=== PATIENT | male | born 1945 | race Caucasian/White ===

== ENCOUNTER → 2017-12-15 | Outpatient (CLI) | payer MEDICARE, OTHER ==
[~2017-12-15] VITALS: Ht 177.8 cm; Wt 81.6 kg
[~2017-12-15] MED LIST: ASPI-983 PO; CATHETER FLUSH 10 ML SYR IV PRN; LORA10TA76 PO; OXYC-202 PO; REGADENOSON 0.4 MG/5 ML SYR (LEXISCAN) IV ONE; RT-ALBUINH IH
[2017-12-15 09:34] VITALS: BP 138/75
[2017-12-15 16:58] VITALS: BP 149/70
--- NOTE | 2017-12-15 16:59 | Cardiology Stress Test Report ---
Stress Test Report Type of NM Stress Test: Test Type: LEXISCAN 0.4MG/5ML Date of Procedure/Referring: Date of Procedure: December 15, 2017 PCP Sharita Sosa MD Admitting Physician Héctor Purcell MD Indications: CAD, shortness of breath Baseline Heart Rate: 58 Baseline Blood Pressure: Blood Pressure Systolic: 149 Blood Pressure Diastolic: 70 Baseline EKG: Baseline EKG: Sinus rhythm Summary: The patient was brought to the stress lab after informed consent was taken. Lexiscan stress test was performed according to the protocol. 0.4 mg of IV Lexiscan was given. Low-grade exercise was performed. Baseline EKG showed sinus rhythm at 58 BPM. Blood pressure 149/70 mmHg. Maximum heart rate of 96 BPM and blood pressure 130/63 mmHg. Patient did not complain of chest pain. Did not have any EKG changes or arrhythmias. 10.88 mCi of Myoview were given for rest imaging and 30.4 mCi of Myoview was given for stress imaging. Transient ischemic dilatation score of 1.05. Ejection fraction of 46 percent. A small sized, intermediate intensity reversible apical, distal anterior defect is noted. SSS 7, SRS 2, SDS 5. Conclusion: Pharmacological stress test is negative. Mild LV systolic dysfunction with normal wall motion. Likely distal anterior/apical ischemia. Clinical correlation is recommended. Sharita SOSA MD December 15, 2017 4:58 pm
== END ==
LOC: CARD 07:50
PROVIDERS: ATTEND Internal Medicine Interventional Cardiology
DX: Z01.810 Encounter for preprocedural cardiovascular examination (principal); I25.10 Atherosclerotic heart disease of native coronary artery without angina pectoris; R06.02 Shortness of breath; F17.200 Nicotine dependence, unspecified, uncomplicated; N20.0 Calculus of kidney
CPT/HCPCS: 78452; 93017

== ENCOUNTER 2017-12-29 07:26 | Day surgery (SDC) | payer MEDICARE, OTHER ==
[~2017-12-29] VITALS: Ht 177.8 cm; Wt 81.6 kg
[2017-12-29] MEDS ORDERED: HEParin (CATH LAB) 2,000 ML IV ONE (07:33)
[2017-12-29] MEDS ORDERED: NS IV 1000 ML 1,000 ML ONE (07:33)
[2017-12-29] MEDS ORDERED: LIDOCAINE 1% INJ 20 ML 20 ML VIAL ONE (07:33)
[2017-12-29] MEDS ORDERED: NS IV 1000 ML 1,000 ML IV SCH ×2 (07:45→11:22)
[2017-12-29 07:58] VITALS: BP 133/96
[2017-12-29 08:11] LABS: RED BLOOD COUNT 4.72 10^6/uL (4.35-5.85); RED CELL DISTRIBUTION WIDTH 13.3 % (10.0-14.5); WHITE BLOOD COUNT 9.5 10^3/uL (4.3-11.0)
[2017-12-29] MEDS ORDERED: OXYC-202 PO (08:23)
[2017-12-29] MEDS ORDERED: RT-ALBUINH IH (08:23)
[2017-12-29] MEDS ORDERED: LORA10TA76 PO (08:23)
[2017-12-29 08:38] LABS: PROTHROMBIN TIME PATIENT 13.4 SEC (12.2-14.7)
[2017-12-29 08:39] LABS: ALANINE AMINOTRANSFERASE 17 U/L (0-55); ALBUMIN 4.2 GM/DL (3.2-4.5); ALKALINE PHOSPHATASE 82 U/L (40-136); BILIRUBIN,TOTAL 0.5 MG/DL (0.1-1.0); BUN/CREATININE RATIO 16; CALCIUM 9.5 MG/DL (8.5-10.1); CARBON DIOXIDE 23 MMOL/L (21-32); CHLORIDE 105 MMOL/L (98-107); CREATININE SERUM 1.06 MG/DL (0.60-1.30); GFR ESTIMATED > 60; GLUCOSE 111 MG/DL (70-105); POTASSIUM 4.6 MMOL/L (3.6-5.0); SODIUM 139 MMOL/L (135-145)
[2017-12-29] MEDS ORDERED: fentaNYL INJECTION 100 MCG/2 ML AMP ONE (09:43)
[2017-12-29] MEDS ORDERED: MIDAZOLAM 5 MG/5 ML (VERSED) VIAL ONE (09:43)
--- NOTE | 2017-12-29 09:56 | Cardiac Procedure Note-CS/ASA ---
Pre-Procedure Note Pre-Op Procedure Note H&P Reviewed The H&P was reviewed, patient examined and no changes noted. Date H&P Reviewed: December 29, 2017 Time H&P Reviewed: 09:56 Conscious Sedation Pre-Proced Time Reviewed: 09:56 ASA Class: 3 Airway Mallampati Classification: ([place] appropriate class) I. II. III, IV Lungs Heart ASA score ASA 1: a normal healthy patient ASA 2: a patient with a mild systemic disease (mid diabetes, controlled hypertension, obesity ASA 3: a patient with a severe systemic disease that limits activity (angina , COPD, prior Myocardial infarction) ASA 4: a patient with an incapacitating disease that is a constant threat to life (CHF, renal failure) ASA 5: a moribund patient not expected to survive 24 hrs. (ruptured aneurysm) ASA 6: a declared brain patient whose organs are being harvested. For emergent operations, add the letter E after the classification Grade 1 Sedation Plan: Analgesia, Amnesia, Plan communicated to team members, Discussed options with patient/fam, Discussed risks with patient/fam Note The patient is an appropriate candidate to undergo the planned procedure, sedation, and anesthesia. The patient immediately re-assessed prior to indication. Sharita SMITH MD December 29, 2017 9:56 am
[2017-12-29 11:05] VITALS: BP 100/67
[2017-12-29 11:15] VITALS: BP 100/62
--- NOTE | 2017-12-29 11:22 | Coronary Angiography Report ---
Coronary Angiography Report DATE OF PROCEDURE: 12/29/17 INDICATION: Shortness of breath, history of ID/CABG, preoperative cardiac assessment, abnormal nuclear stress test. PREOPERATIVE DIAGNOSIS: Shortness of breath, history of ID/CABG, preoperative cardiac assessment, abnormal nuclear stress test. POSTOPERATIVE DIAGNOSIS: Severe three-vessel [place] disease, patent grafts. HISTORY: This is a 72-year-old gentleman who was referred for preoperative cardiovascular risk assessment to undergo a urological procedure under general anesthesia. He complained of shortness of breath with exertion. He has history of ID and CABG 11 years ago and was not taking any antiplatelet therapy or statins. Nuclear stress test was abnormal. Therefore, the patient was scheduled for coronary angiography. PROCEDURES PERFORMED: 1.Coronary angiography. 2.Left heart catheterization. 3. Graft angiography. 4. CARPENTER angiography. 5. Aortic arch angiography. COMPLICATIONS: None. SPECIMENS: None. ESTIMATED BLOOD LOSS: 10 mL ANESTHESIA: Conscious sedation ANTICOAGULATION: None. CONTRAST: 200 mL. FLUOROSCOPY: 15.6 minutes. FLOUROSCOPY DOSE: 619 mgy. PROCEDURE DETAILS: The patient is a 72 male and was brought to the laboratory equipment installer after informed consent was taken. All the risks and complications were explained in detail; this included the risk of bleeding, vascular damage, stroke , ID and even . The patient was draped and prepped in the usual sterile fashion. Access was gained in the right femoral artery with a 5 [place] sheath. Right coronary angiography was done with a JR4 catheter, and graft angiography was done with a JR4 catheter, CARPENTER was engaged with the BLU catheter , left coronary angiography was performed with the JL4 catheter, left heart catheterization and aortic arch angiography was performed with a pigtail catheter. FINDINGS: 1.Left main: Diffuse disease. 2.LAD: Diffuse disease with total occlusion in the proximal segment. Mid/ distal LAD supplied with a patent CARPENTER graft. Backflow into the first diagonal artery as well. 3.Left circumflex artery: Severe diffuse disease. First OM artery is supplied by a patent saphenous vein graft. 4.RCA: Occluded in the proximal segment. Distal RCA is supplied by a saphenous vein graft. 5.Left heart catheterization: Aortic pressure 103/48 mmHg, LV pressure 101/0 mmHg. LVEDP 16 mmHg, normal LV function with no wall motion abnormalities. There was no gradient across the aortic valve. S 6. Saphenous vein graft angiography: Patent saphenous vein graft to first obtuse marginal artery. Patent saphenous vein graft to the distal RCA. 7. CARPENTER angiography: Patent CARPENTER to the proximal LAD. No significant distal disease. Backflow into the first diagonal artery. 8. Aortic arch angiography: No evidence of dissection or aneurysm. Patent segments of the proximal great vessels including the brachiocephalic artery, left carotid artery, and left subclavian artery. CONCLUSIONS: Severe three-vessel [place] CAD with patent grafts. Normal LV function with mildly elevated LVEDP suggesting diastolic dysfunction. I discussed at length with the patient and recommended that he should be on aspirin, statin and other secondary prevention measures. Okay to proceed with urological procedure under general anesthesia. Follow-up in the office in 6 weeks. Andreia Sosa MD, FACP, FACC, [facility] Interventional Cardiology Sharita SOSA MD December 29, 2017 11:22 am
[2017-12-29 11:30] VITALS: BP 117/66
[2017-12-29] MEDS ORDERED: PATIENT MAY USE OWN MEDS, ALL PO SCH (11:30)
[2017-12-29] MEDS ORDERED: ASPI-983 PO (13:42)
--- NOTE | 2017-12-29 13:43 | Discharge Inst-Post CATH ---
Discharge Inst-CATH Post Cardiac Cath D/C Inst Follow Up/Plan Dr. Sosa in 6 weeks CARDIAC CATH DISCHARGE INSTRUCTIONS *Hold Metformin for 48 hours post heart cath. ACTIVITY * Go Home directly and rest. * Limit activity of the leg (or wrist if it was used) for 7 days including aerobics, swimming, jogging, bicycling, etc. * Restrict stair-climbing for 7 days if possible, if not, climb up with your non -cath leg, then bring together on the same step. * Avoid lifting, pushing, pulling or excessive movement of the affected extremity for 7 days. * Customary sexual activity may be resumed after 2 days-use caution not to use a position that strains or causes pain to the affected extremity. * No driving for 24 hours. * NO SMOKING. * Avoid straining for bowel movements for 7 days. * Gentle walking on level ground is allowed. * Returning to work will depend on the type of procedure and the results. Your doctor will discuss this with you. CALL YOUR DOCTOR FOR ANY OF THE FOLLOWING: *If bleeding from the puncture site occurs- Apply gentle pressure to site with clean cloth and call your doctor or EMS. * If a knot or lump forms under the skin, increases in size, or causes pain. * If bruising appears to be worsening or moving further down your leg instead of disappearing. * Temperature above 101 F. CARE OF YOUR GROIN INCISION; * Bruising or purple discoloration of the skin near the puncture site is common. * You may shower only, no bathtub bathing for 5 days. Be careful to avoid slipping as your leg may feel stiff. * If a closure device was used on your femoral artery, please see the attached guide regarding care of the device and your leg. * REMOVE the dressing from your groin the next day after your procedure in the shower. CARE OF YOUR WRIST INCISION; * Bruising or purple discoloration of the skin near the puncture site is common. * You may shower. * DO NOT submerge wrist. * Remove dressing in 24 hours. Sharita SOSA MD December 29, 2017 13:43
--- NOTE | 2017-12-29 13:48 | Cardiology Discharge Summary ---
Diagnosis/Chief Complaint Date of Admission 12/29/2017 Date of Discharge 12/29/2017 Admission Diagnosis Shortness of breath, CAD, abnormal nuclear stress test Final/Discharge Diagnosis Severe [place] CAD, patent grafts Chief Complaint/HPI Chief Complaint/HPI This is a 72-year-old gentleman with history of shortness of breath. He plans to undergo urological procedure under general anesthesia. Decreased functional capacity. History of CABG/NE. Not on optimal medical therapy due to severe side effects. Nuclear stress test was done which was abnormal. Therefore coronary angiography was recommended. Discharge Summary Procedures Coronary angiography showed severe three-vessel [place] CAD. Patent saphenous vein graft to the OM, saphenous vein graft to the distal RCA, CARPENTER to the LAD. Normal LV function. Discharge Physical Examination Unremarkable. Hospital Course Unremarkable. Pending Labs Laboratory Tests 12/29/17 08:04: White Blood Count 9.5, Red Blood Count 4.72, Hemoglobin 15.0, Hematocrit 43, Mean Corpuscular Volume 90, Mean Corpuscular Hemoglobin 32, Mean Corpuscular Hemoglobin Concent 35, Red Cell Distribution Width 13.3, Platelet Count 280, Mean Platelet Volume 9.0, Prothrombin Time 13.4, INR Comment 1.0, Activated Partial Thromboplast Time 30, Sodium Level 139, Potassium Level 4.6, Chloride Level 105, Carbon Dioxide Level 23, Anion Gap 11, Blood Urea Nitrogen 17, Creatinine 1.06, Estimat Glomerular Filtration Rate > 60, BUN/Creatinine Ratio 16, Glucose Level 111, Calcium Level 9.5, Total Bilirubin 0.5, Aspartate Amino Transf (AST/SGOT) 20, Alanine Aminotransferase (ALT/SGPT) 17, Alkaline Phosphatase 82, Total Protein 8.0, Albumin 4.2 Discussion & Recommendations Discussion Discussed at length with the patient since he is not on any antiplatelet therapy. He tells me that he had severe bleeding with Plavix and aspirin. We' ll start him on low-dose aspirin. He also had side effects to statin therapy. I did recommend that he should be on some LDL lowering agent. No cardiac contraindication to his urological procedure. He is low to intermediate risk. Follow up appt.: Dr. Sosa in 4-6 weeks. Dicharge Diet: Cardiac Diet Activity as Tolerated: Yes Home Medications Reviewed patient Home Medication Reconciliation performed by pharmacy medication reconciliations solid waste landfill technician and/or nursing. Patients Allergies have been reviewed. Discharge Home Medications: Reviewed and agree with Discharge Medication list on patient's Discharge Instruction sheet Condition at discharge Stable. Instructions to patient/family Dr. Sosa in 6 weeks Sharita SOSA MD December 29, 2017 13:48
[2017-12-29 15:30] VITALS: BP 124/85
[2017-12-30] MEDS ORDERED: ASPIRIN E.C. 81 MG (ECOTRIN) TAB PO SCH (09:00)
== END 2017-12-29 15:37 | disposition home or self-care (01) ==
LOC: CATH 07:26
PROVIDERS: ATTEND Internal Medicine Interventional Cardiology
DX: I25.10 Atherosclerotic heart disease of native coronary artery without angina pectoris (principal); R06.02 Shortness of breath; R94.39 Abnormal result of other cardiovascular function study; I25.2 Old myocardial infarction; Z95.0 Presence of cardiac pacemaker; Z79.899 Other long term (current) drug therapy; F17.210 Nicotine dependence, cigarettes, uncomplicated
CPT/HCPCS: 36415; 80053; 85027; 85610; 85730; 87081; 93459

== ENCOUNTER → 2020-08-27 | Outpatient (CLI) | payer MEDICARE, MEDICAID ==
[~2020-08-27] MED LIST changes: +ASPI-1238 PO; -ASPI-983 PO; +ATOR80TA76 PO; -CATHETER FLUSH 10 ML SYR IV PRN; +FLUT1DIS28 INH; +LISI-556 PO; +METO-333 PO; +OMG1KC PO; -OXYC-202 PO; +OXYC1TAB12 PO; -REGADENOSON 0.4 MG/5 ML SYR (LEXISCAN) IV ONE; +TICA90TA PO
[2020-08-27 10:00] LABS: BASOPHILS % (AUTO) 0 % (0-10); EOSINOPHILS % (AUTO) 4 % (0-10); HEMATOCRIT 37 % (40-54); HEMOGLOBIN 12.1 G/DL (13.3-17.7); LYMPHOCYTES % (AUTO) 14 % (12-44); MEAN CORPUSCULAR HEMOGLOBIN 30 PG (25-34); MEAN CORPUSCULAR HGB CONC 33 G/DL (32-36); MEAN CORPUSCULAR VOLUME 90 FL (80-99); MEAN PLATELET VOLUME 8.5 FL (7.4-10.4); MONOCYTES % (AUTO) 9 % (0-12); NEUTROPHILS % (AUTO) 73 % (42-75); PLATELET COUNT 419 10^3/uL (130-400); WHITE BLOOD COUNT 11.2 10^3/uL (4.3-11.0)
[2020-08-27 10:01] LABS: EOSINOPHILS # (AUTO) 0.4 10^3/uL (0.0-0.3); LYMPHOCYTES # (AUTO) 1.5 X 10^3 (1.0-4.0); NEUTROPHILS # (AUTO) 8.2 X 10^3 (1.8-7.8)
[2020-08-27 10:29] LABS: POTASSIUM 4.1 MMOL/L (3.6-5.0)
[2020-08-27 10:30] LABS: ALBUMIN 3.9 GM/DL (3.2-4.5); BILIRUBIN,TOTAL 0.4 MG/DL (0.1-1.0); CALCIUM 9.3 MG/DL (8.5-10.1); CREATININE SERUM 1.35 MG/DL (0.60-1.30); TOTAL PROTEIN 7.8 GM/DL (6.4-8.2)
== END ==
LOC: LAB FS 09:33
PROVIDERS: ATTEND Family Medicine
DX: K92.2 Gastrointestinal hemorrhage, unspecified (principal)
CPT/HCPCS: 36415; 80053; 85025

== ENCOUNTER 2020-09-06 11:02 | Inpatient (IN) | payer MEDICARE, MEDICAID ==
[~2020-09-06] VITALS: Ht 177.8 cm; Wt 80.8 kg
[2020-09-06] MEDS ORDERED: ASPIRIN 81 MG CHEW (CHILDREN'S ASA) PO ONE (11:15)
--- NOTE | 2020-09-06 11:17 | ED Chest Pain ---
General Stated Complaint: SOB; CHEST PAIN History of Present Illness Date Seen by Provider: Sep 06, 2020 Time Seen by Provider: 11:10 Initial Comments 74-year-old male with past medical history significant for coronary artery disease and CABG presents with onset of chest pain beginning 1 hour prior to arrival. Radiating to both arms and feeling numbness and tingling in both arms. Somewhat short of air. Denies any recent illness, fever chills or cough. Denies abdominal pain, nausea, vomiting or diarrhea. Seen 3 weeks ago in this ER and transferred to [place] for heart cath where he received a stent by Dr. Garcia. Allergies and Home Medications Allergies Coded Allergies: warfarin (Verified Allergy, Unknown, 08/16/20) midazolam (Verified Adverse Reaction, Severe, 08/18/20) PT RECEIVED VERSED FOR HEART CATH, THEY HAD TO REVERSE MEDICATION DUE TO BEHAVIOR clopidogrel (Verified Adverse Reaction, Unknown, ringing in ears, 08/17/20) Home Medications Albuterol Sulfate 1 Puff Puff, 2 PUFF IH Q4H PRN for SHORTNESS OF BREATH, (Reported) Aspirin 81 Mg Tablet.dr, 81 MG PO DAILY Prescribed by: NIDIA ALBA on 08/18/20 1034 Atorvastatin Calcium 80 Mg Tablet, 80 MG PO HS Prescribed by: NIDIA ALBA on 08/18/20 1034 Fluticasone/Salmeterol 1 Each Blst.w.dev, 1 PUFF INH BID PRN for SHORTNESS OF BREATH, (Reported) Lisinopril 5 Mg Tablet, 5 MG PO DAILY@0900 Prescribed by: NIDIA ALBA on 08/18/20 1034 Metoprolol Tartrate 25 Mg Tablet, 25 MG PO BID Prescribed by: NIDIA ALBA on 08/18/20 1034 Means 3 Polyunsat Fatty Acids 1,000 Mg Cap, 1,000 MG PO DAILY, (Reported) Ticagrelor 90 Mg Tablet, 90 MG PO BID Prescribed by: NIDIA ALBA on 08/18/20 1034 Patient Home Medication List Home Medication List Reviewed: Yes Review of Systems Review of Systems Constitutional: No chills, No dizziness, No fever, No malaise, No weakness Respiratory: Denies Cough; Shortness of Air Cardiovascular: Chest Pain; Denies Edema, Denies Lightheadedness Gastrointestinal: Denies Abdominal Pain, Denies Diarrhea, Denies Nausea, Denies Poor Appetite, Denies Vomiting Musculoskeletal: No back pain, No joint pain, No neck pain Skin: No change in color, No lesions, No lumps, No rash Past Bnbjpxk-Hptosd-Vcdpds Hx Past Med/Social Hx: Reviewed Nursing Past Med/Soc Hx Patient Social History Alcohol Beverage of Choice: Beer Type Used: Cigarettes 2nd Hand Smoke Exposure: Yes Past Medical History Surgeries: Yes (R ARM DEAN, L WRIST, HERNIA, KIDNEY STONE REMOVED) CABG Respiratory: Yes Asthma, COPD Cardiac: Yes (HAD CABG) Coronary Artery Disease, Heart Attack, Rheumatic Fever Neurological: No Genitourinary: Yes Kidney Stones Gastrointestinal: No Musculoskeletal: Yes (R ARM) Fractures Endocrine: No HEENT: No Cancer: No Psychosocial: No Blood Disorders: No (REPORTS STOPPED BLOOD THINNERS HGB LOW IN PAST) Physical Exam Vital Signs Vital Signs - First Documented 09/06/20 11:18 Temp 36.4 Pulse 60 Resp 12 B/P (MAP) 122/79 (93) Pulse Ox 99 O2 Delivery Room Air Capillary Refill : Height, Weight, BMI Height: 5'10.00" Weight: 180lbs. 0.0oz. 81.636781tu; 25.30 BMI Method: General Appearance: No Apparent Distress, WD/WN, Anxious HEENT: PERRL/EOMI, Normal ENT Inspection Neck: Normal Inspection, Non Tender, Supple Respiratory: Chest Non Tender, Lungs Clear, Normal Breath Sounds, No Accessory Muscle Use, No Respiratory Distress Cardiovascular: Regular Rate, Rhythm, No Edema, No JVD, Normal Peripheral Pulses Gastrointestinal: Non Tender, Soft; No Distended, No Guarding Extremity: Normal Capillary Refill, Normal Inspection, Non Tender, No Calf Tenderness Neurologic/Psychiatric: Alert, Oriented x3, No Motor/Sensory Deficits, Normal Mood/Affect Skin: Normal Color, Warm/Dry Progress/Results/Core Measures Results/Orders Lab Results Laboratory Tests Test 09/06/20 11:13 Range/Units White Blood Count 9.1 4.3-11.0 10^3/uL Red Blood Count 4.00 L 4.35-5.85 10^6/uL Hemoglobin 11.7 L 13.3-17.7 G/DL Hematocrit 36 L 40-54 % Mean Corpuscular Volume 89 80-99 FL Mean Corpuscular Hemoglobin 29 25-34 PG Mean Corpuscular Hemoglobin Concent 33 32-36 G/DL Red Cell Distribution Width 13.2 10.0-14.5 % Platelet Count 550 H 130-400 10^3/uL Mean Platelet Volume 8.7 7.4-10.4 FL Immature Granulocyte % (Auto) 0 % Neutrophils (%) (Auto) 68 42-75 % Lymphocytes (%) (Auto) 20 12-44 % Monocytes (%) (Auto) 8 0-12 % Eosinophils (%) (Auto) 4 0-10 % Basophils (%) (Auto) 1 0-10 % Neutrophils # (Auto) 6.2 1.8-7.8 X 10^3 Lymphocytes # (Auto) 1.8 1.0-4.0 X 10^3 Monocytes # (Auto) 0.7 0.0-1.0 X 10^3 Eosinophils # (Auto) 0.4 H 0.0-0.3 10^3/uL Basophils # (Auto) 0.1 0.0-0.1 10^3/uL Immature Granulocyte # (Auto) 0.0 0.0-0.1 10^3/uL Prothrombin Time 13.6 12.2-14.7 SEC INR Comment 1.0 0.8-1.4 Activated Partial Thromboplast Time 25 24-35 SEC Sodium Level 136 135-145 MMOL/L Potassium Level 4.0 3.6-5.0 MMOL/L Chloride Level 98 98-107 MMOL/L Carbon Dioxide Level 25 21-32 MMOL/L Anion Gap 13 5-14 MMOL/L Blood Urea Nitrogen 12 7-18 MG/DL Creatinine 1.22 0.60-1.30 MG/DL Estimat Glomerular Filtration Rate 58 BUN/Creatinine Ratio 10 Glucose Level 112 H 70-105 MG/DL Calcium Level 9.1 8.5-10.1 MG/DL Corrected Calcium 9.3 8.5-10.1 MG/DL Total Bilirubin 0.2 0.1-1.0 MG/DL Aspartate Amino Transf (AST/SGOT) 22 5-34 U/L Alanine Aminotransferase (ALT/SGPT) 17 0-55 U/L Alkaline Phosphatase 116 40-136 U/L Troponin I 1.38 *H <0.30 NG/ML Total Protein 7.7 6.4-8.2 GM/DL Albumin 3.7 3.2-4.5 GM/DL My Orders Orders - ROVENSTINE,CAROLYN L DO Ed Iv/Invasive Line Start (09/06/20 11:07) Chest 1 View Ap/Pa Only (09/06/20 11:07) Ekg Tracing (09/06/20 11:07) Troponin I Fs (09/06/20 11:07) Cbc With Automated Diff (09/06/20 11:07) Comprehensive Metabolic Panel (09/06/20 11:07) Aspirin Chewable Tablet (Baby Aspirin Ch (09/06/20 11:15) Nitroglycerin 0.4 Mg Btl 25's (Nitrostat (09/06/20 11:30) Ns Iv 1000 Ml (Sodium Chloride 0.9%) (09/06/20 11:30) Heparin (Bolus Per Protocol) (Heparin (B (09/06/20 12:00) Morphine Injection (Morphine Injection (09/06/20 12:02) Heparin Drip [id number] Unit/500ml (Heparin (09/06/20 12:15) Protime With Inr (09/06/20 12:23) Partial Thromboplastin Time (09/06/20 12:23) Morphine Injection (Morphine Injection (09/06/20 12:32) Medications Given in ED Current Medications Medications Dose Ordered Sig/Gregory Route Start Time Stop Time Status Last Admin Dose Admin Aspirin 324 mg ONCE ONCE PO 09/06/20 11:15 09/06/20 11:16 DC 09/06/20 11:16 324 MG Heparin Sodium/ Dextrose 500 ml @ 0 mls/hr Q0M ONCE IV 09/06/20 12:15 09/06/20 12:16 DC 09/06/20 12:23 19.2 MLS/HR Nitroglycerin 0.4 mg NEEDED PRN SL 09/06/20 11:30 09/06/20 12:33 DC 09/06/20 11:58 0.4 MG Vital Signs/I&O 09/06/20 09/06/20 11:18 11:25 Temp 36.4 Pulse 60 Resp 12 B/P (MAP) 122/79 (93) Pulse Ox 99 O2 Delivery Room Air Room Air Progress Progress Note : Progress Note Chest pain improved with nitroglycerin, pressure did decrease a bit each time, but returned to baseline. Eventually gave Morphine w modest improvement of pain. 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 ST depression 1mm V1-V3. compared to ECG 08/18/2020 Diagnostic Imaging Diagonstic Imaging: Xray Plain Films/CT/US/NM/MRI: chest Comments COMPARISON STUDY: Chest from August 15. FINDINGS: Frontal view of the chest demonstrates previous coronary artery bypass graft changes. Heart size is normal. Some pleural-based calcifications and calcified granulomas are stable. There are no pleural effusions. IMPRESSION: There are no acute findings. Dictated on workstation # [id number] Dict: 09/06/20 1128 Trans: 09/06/20 1151 [id number] Interpreted by: BILLIE GONZALES MD Electronically signed by: Departure Communication (Admissions) Time/Spoke to Admitting Phy: 11:[address] Luu regarding admission for CP, ECG changes and elev Trop. aware that I spoke to Dr Sosa Time/Spoke to Consulting Phy: 11:[address] Sosa, will see pt in consultation. advised starting Heparin per protocol Impression Primary Impression: Chest pain Qualified Codes: R07.9 - Chest pain, unspecified Additional Impression: ST segment changes on electrocardiogram Disposition: 30 STILL A PATIENT Condition: Improved Admissions Decision to Admit Reason: Admit from ER (General) Decision to Admit/Date: Sep 06, 2020 Time/Decision to Admit Time: 11:45 Departure-Patient Inst. Referrals: GONZALEZ ANN MD (PCP/Family) Primary Care Physician CAROLYN RICHARDSON DO Sep 06, 2020 11:17
[2020-09-06 11:22] LABS: HEMATOCRIT 36 % (40-54); HEMOGLOBIN 11.7 G/DL (13.3-17.7); MEAN CORPUSCULAR HEMOGLOBIN 29 PG (25-34); MEAN CORPUSCULAR HGB CONC 33 G/DL (32-36); MEAN CORPUSCULAR VOLUME 89 FL (80-99); MEAN PLATELET VOLUME 8.7 FL (7.4-10.4); PLATELET COUNT 550 10^3/uL (130-400); WHITE BLOOD COUNT 9.1 10^3/uL (4.3-11.0)
[2020-09-06 11:23] LABS: BASOPHILS # (AUTO) 0.1 10^3/uL (0.0-0.1); BASOPHILS % (AUTO) 1 % (0-10); EOSINOPHILS # (AUTO) 0.4 10^3/uL (0.0-0.3); EOSINOPHILS % (AUTO) 4 % (0-10); LYMPHOCYTES # (AUTO) 1.8 X 10^3 (1.0-4.0); LYMPHOCYTES % (AUTO) 20 % (12-44); MONOCYTES # (AUTO) 0.7 X 10^3 (0.0-1.0); MONOCYTES % (AUTO) 8 % (0-12); NEUTROPHILS # (AUTO) 6.2 X 10^3 (1.8-7.8); NEUTROPHILS % (AUTO) 68 % (42-75)
[2020-09-06] MEDS ORDERED: NS IV 1000 ML 1,000 ML IV SCH ×2 (11:30→20:45)
[2020-09-06] MEDS: NITROGLYCERIN 0.4 MG SL TABS BTL 25'S SL PRN ×2 (11:32→11:58)
[2020-09-06 11:40] LABS: BILIRUBIN,TOTAL 0.2 MG/DL (0.1-1.0); CALCIUM 9.1 MG/DL (8.5-10.1); CREATININE SERUM 1.22 MG/DL (0.60-1.30)
[2020-09-06 11:41] LABS: TOTAL PROTEIN 7.7 GM/DL (6.4-8.2)
[2020-09-06 11:42] LABS: ALBUMIN 3.7 GM/DL (3.2-4.5)
--- NOTE | 2020-09-06 11:52 | Diagnostic Imaging Report ---
INDICATION: Chest pain, shortness of breath one, hour history of myocardial infarction 3 weeks ago. Recent stent placement. COMPARISON STUDY: Chest from August 15. FINDINGS: Frontal view of the chest demonstrates previous coronary artery bypass graft changes. Heart size is normal. Some pleural-based calcifications and calcified granulomas are stable. There are no pleural effusions. IMPRESSION: There are no acute findings. Dictated by: Dictated on workstation # [id number]
[2020-09-06] MEDS ORDERED: HEParin 1000 UNIT/ML (10ML VIAL) FOR BOLUS IV SCH ×2 (12:00→14:30)
[2020-09-06] MEDS ORDERED: morphine INJ 10 MG/ML 1ML (SYR OR VIAL) IVP STA ×2 (12:02→12:32)
[2020-09-06] MEDS ORDERED: HEParin DRIP 25000 UNIT/500ML 500 ML IV ONE (12:15)
[2020-09-06 12:37] LABS: PROTHROMBIN TIME PATIENT 13.6 SEC (12.2-14.7)
--- NOTE | 2020-09-06 14:17 | Consultation-Cardiology ---
HPI-Cardiology Cardiology Consultation: Date of Consultation 09/06/20 Date of Admission Attending Physician Leonie Luu MD Admitting Physician Héctor Purcell MD Consulting Physician Sharita SOSA MD HPI: Time Seen by a Provider: 14:17 Chief Complaint: chest pain is a 74-year-old gentleman with previous history of coronary artery disease, CABG. He had previous non-STEMI with PCI done with bare metal stent on 08/17/2020 to the saphenous vein graft to the OM. haziness was noted in the saphenous vein graft, differential diagnoses included thrombus. During the procedure initially a filter wire was placed distal to the diseased segment, however once we tried to pass a stent, the entire system came out into the aorta. Patient started to have chest pain. Angiogram showed significant slow flow. Therefore the filter wire was retrieved, we urgently past the lesion with the whisper wire and a bare metal stent was deployed at 9 kitty for 20 seconds. 500 g of IC nicardipine was also given. This resolved his chest pain and improved coronary flow. patient presents with chest discomfort radiating to the both arms and tingling. Denies any smoking. No chest pain when I saw the patient. Review of Systems-Cardiology Review of Systems Constitutional: As described under HPI; No As described under HPI, No no symptoms reported, No chills, No fever, No lightheadedness Eyes: No As described under HPI, No no symptoms reported, No blindness, No blurred vision, No contact lenses, No drainage, No decreased acuity, No foreign body sensation, No pain, No vision change Ears/Nose/Throat: No As described under HPI, No no symptoms reported, No c hronic hearing loss, No ear discharge, No ear pain, No nasal drainage, No ulcerations Respiratory: No no symptoms reported; As described under HPI; No As described under HPI, No cough, No orthopnea, No shortness of breath, No SOB with excertion Cardiovascular: No no symptoms reported; As described under HPI; No As described under HPI; chest pain; No edema, No irregular heart rate, No lightheadedness, No palpitations Gastrointestinal: No no symptoms reported, No As described under HPI, No abdomen distended, No abdominal pain, No blood streaked bowels, No constipation, No diarrhea, No nausea, No vomiting, No stool coloration changes Genitourinary: No As described under HPI, No burning, No dysuria, No discharge, No frequency, No flank pain, No hematuria, No urgency Skin: No rash, No skin related problems, No ulcerations Psychiatric/Neurological: No anxiety, No depression, No seizure, No focal weakness, No syncope Hematologic: No bleeding abnormalities JOP-[id number]-[id number] Hx Patient Social History Smoking Status: Current Everyday Smoker 2nd Hand Smoke Exposure: Yes Past Medical History PMH As described under Assessment. Allergies and Home Medications Allergies Coded Allergies: warfarin (Verified Allergy, Unknown, 08/16/20) midazolam (Verified Adverse Reaction, Severe, 08/18/20) PT RECEIVED VERSED FOR HEART CATH, THEY HAD TO REVERSE MEDICATION DUE TO BEHAVIOR clopidogrel (Verified Adverse Reaction, Unknown, ringing in ears, 08/17/20) Home Medications Albuterol Sulfate 1 Puff Puff, 2 PUFF IH Q4H PRN for SHORTNESS OF BREATH, (Reported) Aspirin 81 Mg Tablet.dr, 81 MG PO DAILY Prescribed by: NIDIA ALBA on 08/18/20 1034 Atorvastatin Calcium 80 Mg Tablet, 80 MG PO HS Prescribed by: NIDIA ALBA on 08/18/20 1034 Fluticasone/Salmeterol 1 Each Blst.w.dev, 1 PUFF INH BID PRN for SHORTNESS OF BREATH, (Reported) Lisinopril 5 Mg Tablet, 5 MG PO DAILY@0900 Prescribed by: NIDIA ALBA on 08/18/20 1034 Metoprolol Tartrate 25 Mg Tablet, 25 MG PO BID Prescribed by: NIDIA ALBA on 08/18/20 1034 [place] 3 Polyunsat Fatty Acids 1,000 Mg Cap, 1,000 MG PO DAILY, (Reported) Ticagrelor 90 Mg Tablet, 90 MG PO BID Prescribed by: NIDIA ALBA on 08/18/20 1034 Patient Home Medication List Home Medication List Reviewed: Yes Physical Exam-Cardiology Physical Exam Vital Signs/I&O 09/06/20 09/06/20 09/06/20 09/06/20 11:18 11:25 12:33 13:38 Temp 36.4 Pulse 60 55 55 Resp 12 20 B/P (MAP) 122/79 (93) 112/63 Pulse Ox 99 94 O2 Delivery Room Air Room Air Room Air Capillary Refill : Less Than 3 Seconds Constitutional: appears stated age, AAO x 3; No apparent distress; well- developed, well-nourished HEENT: PERRL; No discharge; hearing is well preserved, oral hygience is good; No ulceration, No xanthelasmas are seen Neck: No carotid bruit; carotid pulses are 2 + bilaterally Respiratory: chest is bilaterally symmetric, lungs clear to auscultation Cardiovascular: regular rate-rhythm, S1 and S2; No diastolic murmur, No systolic murmur Gastrointestinal: soft, audible bowel sounds; No spleenomegaly Rectal: deferred Extremities: No clubbing, No cyanosis; no lower extremity edema bilateral; No significant edema Neurologic/Psychiatric: no motor/sensory deficits, alert, normal mood/affect, oriented x 3, power is 5/5 both on sides Skin: normal color; No rash, No ulcerations Data Review Labs Laboratory Tests 09/06/20 11:13: White Blood Count 9.1, Red Blood Count 4.00L, Hemoglobin 11.7L, Hematocrit 36L, Mean Corpuscular Volume 89, Mean Corpuscular Hemoglobin 29, Mean Corpuscular Hemoglobin Concent 33, Red Cell Distribution Width 13.2, Platelet Count 550H, Mean Platelet Volume 8.7, Immature Granulocyte % (Auto) 0, Neutrophils (%) (Auto) 68, Lymphocytes (%) (Auto) 20, Monocytes (%) (Auto) 8, Eosinophils (%) (Auto) 4, Basophils (%) (Auto) 1, Neutrophils # (Auto) 6.2, Lymphocytes # (Auto) 1.8, Monocytes # (Auto) 0.7, Eosinophils # (Auto) 0.4H, Basophils # (Auto) 0.1, Immature Granulocyte # (Auto) 0.0, Prothrombin Time 13.6, INR Comment 1.0, Activated Partial Thromboplast Time 25, Sodium Level 136, Potassium Level 4.0, Chloride Level 98, Carbon Dioxide Level 25, Anion Gap 13, Blood Urea Nitrogen 12, Creatinine 1.22, Estimat Glomerular Filtration Rate 58, BUN/Creatinine Ratio 10, Glucose Level 112H, Calcium Level 9.1, Corrected Calcium 9.3, Total Bilirubin 0.2, Aspartate Amino Transf (AST/SGOT) 22, Alanine Aminotransferase (ALT/SGPT) 17, Alkaline Phosphatase 116, Troponin I 1.38*H, Total Protein 7.7, Albumin 3.7 ECG Impression ECG Initial ECG Rhythm: Normal Sinus Initial ECG Impression: Nonspecific Changes A/P-Cardiology Assessment/Admission Diagnosis non-STEMI, CAD, History of CABG, PCI 3 weeks ago. Plan this is a 74-year-old gentleman with history of CAD, CABG. 3 weeks ago he had a complicated PCI to the saphenous vein graft to the OM with a bare metal stent. Patient had significant slow flow during the procedure. patient was compliant with aspirin and Brilinta. Presents with chest discomfort with positive troponin. No chest pain currently. I will treat with medical therapy with aspirin, Brilinta and Lovenox. Nuclear stress test on Tuesday. If there is medium or large size defect, coronary angiography will be recommended. echocardiogram. Discussed with the patient. He understands the plan. Thank you for your consultation. Please call me if you have any questions. Andreia Sosa MD, FACP, FACC, FSCAI, FHRS, CCDS Interventional Cardiology Cardiac Electrophysiology Vascular Medicine and Endovascular Interventions Clinical Quality Measures AMI/AHF: ASA po Prior to arrival: Yes Sharita SOSA MD Sep 06, 2020 14:17
[2020-09-06] MEDS ORDERED: ONDANSETRON 4 MG/2 ML (SDV) Z0FRAN IV PRN (14:30)
[2020-09-06] MEDS ORDERED: HEParin DRIP 25000 UNIT/500ML 500 ML IV SCH (14:30)
[2020-09-06] MEDS ORDERED: NITROGLYCERIN 0.4 MG SL TABS BTL 25'S SL PRN (14:30)
[2020-09-06] MEDS: NS IV 1000 ML 1,000 ML IV SCH (15:52)
[2020-09-06] MEDS: ENOXAPARIN 80 MG/0.8 ML (LOVENOX) SYR SC SCH (16:34)
[2020-09-06] MEDS: morphine INJ 4 MG/ML 1 ML (VIAL/SYRINGE) IV PRN ×2 (16:40→21:09)
[2020-09-06] MEDS: RT-ALBUTEROL INHALER HFA (VENTOLIN HFA) 18 GM IH SCH ×2 (18:47→23:11)
[2020-09-07] MEDS: RT-ALBUTEROL INHALER HFA (VENTOLIN HFA) 18 GM IH SCH ×5 (02:41→21:04)
[2020-09-07] MEDS: ENOXAPARIN 80 MG/0.8 ML (LOVENOX) SYR SC SCH ×2 (04:25→16:31)
[2020-09-07] MEDS: NS IV 1000 ML 1,000 ML IV SCH ×2 (05:52→10:23)
[2020-09-07 08:54] LABS: BASOPHILS % (AUTO) 0 % (0-10); EOSINOPHILS # (AUTO) 0.1 10^3/uL (0.0-0.3); EOSINOPHILS % (AUTO) 1 % (0-10); HEMATOCRIT 34 % (40-54); LYMPHOCYTES # (AUTO) 0.8 10^3/uL (1.0-4.0); LYMPHOCYTES % (AUTO) 7 % (12-44); MEAN CORPUSCULAR HEMOGLOBIN 29 pg (25-34); MEAN CORPUSCULAR HGB CONC 32 g/dL (32-36); MEAN CORPUSCULAR VOLUME 90 fL (80-99); MEAN PLATELET VOLUME 8.5 fL (9.0-12.2); MONOCYTES # (AUTO) 0.7 10^3/uL (0.0-1.0); MONOCYTES % (AUTO) 6 % (0-12); NEUTROPHILS # (AUTO) 9.5 10^3/uL (1.8-7.8); NEUTROPHILS % (AUTO) 86 % (42-75); PLATELET COUNT 426 10^3/uL (130-400); WHITE BLOOD COUNT 11.1 10^3/uL (4.3-11.0)
[2020-09-07] MEDS: ASPIRIN E.C. 81 MG (ECOTRIN) TAB PO SCH (09:02)
[2020-09-07 09:08] LABS: ALANINE AMINOTRANSFERASE 47 U/L (0-55); ALBUMIN 3.3 GM/DL (3.2-4.5); ALKALINE PHOSPHATASE 101 U/L (40-136); BILIRUBIN,TOTAL 0.4 MG/DL (0.1-1.0); BUN/CREATININE RATIO 12; CALCIUM 8.5 MG/DL (8.5-10.1); CARBON DIOXIDE 21 MMOL/L (21-32); CHLORIDE 103 MMOL/L (98-107); CREATININE SERUM 1.08 MG/DL (0.60-1.30); GFR ESTIMATED > 60; GLUCOSE 128 MG/DL (70-105); POTASSIUM 4.7 MMOL/L (3.6-5.0); SODIUM 138 MMOL/L (135-145); TOTAL PROTEIN 6.8 GM/DL (6.4-8.2)
[2020-09-07 09:23] LABS: BAND NEUTROPHILS 3 %; HYPERSEGMENTED NEUT SLIGHT; LYMPHOCYTES % (MANUAL) 8 %; MONOCYTES % (MANUAL) 4 %; NEUTROPHILS % (MANUAL) 85 %; RBC MORPH NORMAL
--- NOTE | 2020-09-07 09:34 | NUR ---
THIS NURSE CALLED CRITICAL TROPONIN TO DR WALKER. ORDER GIVEN TO OBTAIN AN EKG AND NOTIFY DR SMITH.
--- NOTE | 2020-09-07 09:38 | History & Physical-Hospitalist ---
History of Present Illness HPI/Chief Complaint This is a 74-year-old white male who had a stent placed by Dr. Garcia 3 weeks ago. He has been somewhat noncompliant with his medications but says he is taking them in the last day or 2. He does note that he continues to smoke but usually not more than 4 to 5 cigarettes a day. He had presented with complaints of chest discomfort that radiated to both arms. He does not have nitroglycerin at home so he did not utilize that. His chest pain did improve after he was given some nitro in the emergency room and he was transferred here for further evaluation. Initial troponin was elevated and EKG shows T wave inversion in the inferior lateral leads. Second troponin is pending. Currently at the time of my interview he denies having any chest pain but does note that he is little short of breath. Source: patient Exam Limitations: no limitations Date Seen 09/07/20 Time Seen by a Provider: 09:00 Attending Physician Leonie Luu MD PCP Héctor Purcell MD Referring Physician Date of Admission Sep 06, 2020 at 13:46 Home Medications & Allergies Home Medications Reviewed patient Home Medication Reconciliation performed by pharmacy medication reconciliations glass technician/installer and/or nursing. Patients Allergies have been reviewed. Allergies Allergies Coded Allergies warfarin (Verified Allergy, Unknown, 08/16/20) midazolam (Verified Adverse Reaction, Severe, 08/18/20) PT RECEIVED VERSED FOR HEART CATH, THEY HAD TO REVERSE MEDICATION DUE TO BEHAVIOR clopidogrel (Verified Adverse Reaction, Unknown, ringing in ears, 08/17/20) Past Bpoydsu-Xzpdua-Pqvzcp Hx Past Med/Social Hx: Reviewed Nursing Past Med/Soc Hx Patient Social History Marrital Status: single Employed/Student: unemployed Alcohol Use: Occasionally Uses Alcohol Beverage of Choice: Beer Recreational Drug Use: No Smoking Status: Current Everyday Smoker Type Used: Cigarettes 2nd Hand Smoke Exposure: Yes Recent Foreign Travel: No Contact w/other who traveled: No Recent Hopitalizations: No Recent Infectious Disease Expo: No Seasonal Allergies Seasonal Allergies: No Past Medical History Surgeries: CABG Cardiac: Coronary Artery Disease, Heart Attack, Rheumatic Fever Genitourinary: Kidney Stones Musculoskeletal: Fractures History of Blood Disorders: No (REPORTS STOPPED BLOOD THINNERS HGB LOW IN PAST) Family History Reviewed Nursing Family Hx Review of Systems Constitutional: see HPI EENTM: no symptoms reported Respiratory: dyspnea on exertion, short of breath, wheezing Cardiovascular: see HPI, chest pain Gastrointestinal: no symptoms reported Genitourinary: no symptoms reported Musculoskeletal: no symptoms reported Skin: no symptoms reported Psychiatric/Neurological: No Symptoms Reported Physical Exam Physical Exam Vital Signs Vital Signs - First Documented 09/06/20 09/07/20 11:18 02:57 Temp 36.4 Pulse 60 Resp 12 B/P (MAP) 122/79 (93) Pulse Ox 99 O2 Delivery Room Air O2 Flow Rate 2.00 Capillary Refill : Less Than 3 Seconds Height, Weight, BMI Height: 5'10.00" Weight: 180lbs. 0.0oz. 81.434199bo; 25.24 BMI Method: General Appearance: No Apparent Distress, WD/WN HEENT: Normal ENT Inspection Neck: Full Range of Motion, Normal Inspection, Non Tender Respiratory: Decreased Breath Sounds, Wheezing Cardiovascular: Systolic Murmur, Irregularly Irregular Gastrointestinal: Normal Bowel Sounds, Non Tender, Soft Extremity: No Pedal Edema Neurologic/Psychiatric: Alert, Oriented x3, No Motor/Sensory Deficits, Normal Mood/Affect Skin: Normal Color, Warm/Dry Results Results/Procedures Labs Laboratory Tests 09/06/20 11:13 09/07/20 08:40 Patient resulted labs reviewed. Imaging: Reviewed Imaging Report Assessment/Plan Admission Diagnosis Non-ST segment elevation AL Coronary artery disease-status post stents 3 weeks ago COPD Tobaccoism Elevated liver function tests Mild anemia Medical noncompliance Patient troponin was markedly elevated this morning. has seen the patient in consult and will proceed as conditions indicate Admission Status: Observation Clinical Quality Measures AMI/AHF: ASA po Prior to arrival: Yes Copy Copies To 1: SELF,LEONIE RAMOS MD, MD Sep 07, 2020 09:38
--- NOTE | 2020-09-07 09:53 | NUR ---
THIS NURSE NOTIFIED DR SMITH OF EKG RESULTS AND RESULTS OF ADMISSION EKG, CRITICAL TROPONIN, AND PT CONDITION AND VITALS. PT IS C/O SOA AND HAD NAUSEA THIS MORNING. PT DENIES CHEST PAIN AT THIS TIME. DR SMITH NOTIFIED THIS NURSE HE WILL BE IN SHORTLY TO SEE PT. WILL CONTINUE TO MONITOR.
[2020-09-07 10:09] VITALS: BP 127/85
[2020-09-07] MEDS: ADVAIR HFA 115/21 MCG INHALER 8 GM IH SCH ×2 (10:29→21:04)
[2020-09-07] MEDS: meTOprolol TARTRATE 25 MG (LOPRESSOR) TABLET PO SCH ×2 (10:47→21:51)
[2020-09-07] MEDS: OMEGA 3 (FISH OIL) 1000 MG CAP PO SCH (10:47)
--- NOTE | 2020-09-07 11:59 | NUR ---
THIS NURSE CLARIFIED WITH DR SMITH TO OBTAIN REPEAT TROPONIN IN THE MORNING. NO OTHER ORDERS AT THIS TIME. WILL CONTINUE TO MONITOR.
--- NOTE | 2020-09-07 13:05 | NUR ---
THIS NURSE CLARIFIED WITH DR SMITH PT MAY EAT NOW. PT DOES NOT NEED TO BE NPO AT MIDNIGHT. DR LEARY WILL BE ROUNDING TOMORROW.
--- NOTE | 2020-09-07 14:56 | Cardiology Progress Note ---
Cardiology SOAP Progress Note Subjective: Patient had chest discomfort last night. No chest discomfort this morning Objective: I&O/Vital Signs 09/07/20 09/07/20 09/07/20 09/07/20 02:57 04:23 06:53 07:00 Temp 36.0 Pulse 64 70 Resp 23 B/P (MAP) 107/87 (94) Pulse Ox 96 92 O2 Delivery Nasal Cannula Nasal Cannula Nasal Cannula O2 Flow Rate 2.00 2.00 2.00 09/07/20 09/07/20 09/07/20 09/07/20 07:48 08:00 10:09 10:32 Temp 36.0 36.0 Pulse 92 92 Resp 26 B/P (MAP) 127/85 (99) Pulse Ox 92 92 93 O2 Delivery Nasal Cannula Nasal Cannula Nasal Cannula O2 Flow Rate 2.00 2.00 2.00 09/07/20 09/07/20 09/07/20 09/07/20 10:33 11:33 13:00 14:08 Temp 36.8 Pulse 73 68 Resp 20 B/P (MAP) 117/71 (86) Pulse Ox 93 90 91 O2 Delivery Nasal Cannula Nasal Cannula Nasal Cannula O2 Flow Rate 2.00 3.00 2.00 09/07/20 00:00 Intake Total 1200 ml Output Total 100 ml Balance 1100 ml Weight (Pounds): 180 Weight (Ounces): 0.0 Weight (Calculated Kilograms): 81.691173 Constitutional: appears stated age, AAO x 3; No apparent distress; well- developed, well-nourished Respiratory: chest is bilaterally symmetric, lungs clear to auscultation Cardiovascular: regular rate-rhythm, S1 and S2; No diastolic murmur, No systolic murmur Gastrointestional: soft, audible bowel sounds; No spleenomegaly Extremities: No clubbing, No cyanosis; no lower extremity edema bilateral; No significant edema Neurologic/Psychiatric: no motor/sensory deficits, alert, normal mood/affect, oriented x 3, power is 5/5 both on sides Skin: normal color; No rash, No ulcerations Results/Procedures: Labs Laboratory Tests 09/07/20 08:40: White Blood Count 11.1H, Red Blood Count 3.77L, Hemoglobin 11.0L, Hematocrit 34L , Mean Corpuscular Volume 90, Mean Corpuscular Hemoglobin 29, Mean Corpuscular Hemoglobin Concent 32, Red Cell Distribution Width 13.2, Platelet Count 426H, Mean Platelet Volume 8.5L, Immature Granulocyte % (Auto) 0, Neutrophils (%) (Auto) 86H, Lymphocytes (%) (Auto) 7L, Monocytes (%) (Auto) 6, Eosinophils (%) (Auto) 1, Basophils (%) (Auto) 0, Neutrophils # (Auto) 9.5H, Lymphocytes # (Auto) 0.8L, Monocytes # (Auto) 0.7, Eosinophils # (Auto) 0.1, Basophils # (Auto) 0.0, Immature Granulocyte # (Auto) 0.0, Neutrophils % (Manual) 85, Lymphocytes % (Manual) 8, Monocytes % (Manual) 4, Band Neutrophils 3, Hypersegmented Neutrophils SLIGHT, Blood Morphology Comment NORMAL, Sodium Level 138, Potassium Level 4.7, Chloride Level 103, Carbon Dioxide Level 21, Anion Gap 14, Blood Urea Nitrogen 13, Creatinine 1.08, Estimat Glomerular Filtration Rate > 60, BUN/Creatinine Ratio 12, Glucose Level 128H, Calcium Level 8.5, Corrected Calcium 9.1, Total Bilirubin 0.4, Aspartate Amino Transf (AST/SGOT) 166H, Alanine Aminotransferase (ALT/SGPT) 47, Alkaline Phosphatase 101, Troponin I 63.695*H, Total Protein 6.8, Albumin 3.3 A/P: Assessment/Dx: non-STEMI, CAD, History of CABG, PCI 3 weeks ago. Plan: this is a 74-year-old gentleman with history of CAD, CABG. 3 weeks ago he had a complicated PCI to the saphenous vein graft to the OM with a bare metal stent. Patient had significant slow flow during the procedure. patient was compliant with aspirin and Brilinta. Presents with chest discomfort with positive troponin. No chest pain currently. I will treat with medical therapy with aspirin, Brilinta and Lovenox. Significantly increased troponin. Likely occlusion of the saphenous vein graft. Treat medically for now. Defer to Dr. Barnes for possible complicated PCI soon. echocardiogram. Discussed with the patient. He understands the plan. Thank you for your consultation. Please call me if you have any questions. Andreia Sosa MD, FACP, FACC, FSCAI, FHRS, CCDS Interventional Cardiology Cardiac Electrophysiology Vascular Medicine and Endovascular Interventions Clinical Quality Measures AMI/AHF: ASA po Prior to arrival: Yes Sharita SOSA MD Sep 07, 2020 14:56
[2020-09-08] MEDS: NS IV 1000 ML 1,000 ML IV SCH ×3 (01:48→11:46)
[2020-09-08] MEDS: RT-ALBUTEROL INHALER HFA (VENTOLIN HFA) 18 GM IH SCH ×4 (03:29→18:59)
[2020-09-08] MEDS: ENOXAPARIN 80 MG/0.8 ML (LOVENOX) SYR SC SCH ×2 (04:44→16:30)
[2020-09-08] MEDS ORDERED: REGADENOSON 0.4 MG/5 ML SYR (LEXISCAN) IV ONE (08:00)
[2020-09-08] MEDS ORDERED: ASPIRIN E.C. 81 MG (ECOTRIN) TAB PO SCH (09:00)
[2020-09-08] MEDS: meTOprolol TARTRATE 25 MG (LOPRESSOR) TABLET PO SCH ×2 (09:32→20:19)
[2020-09-08] MEDS: ASPIRIN E.C. 81 MG (ECOTRIN) TAB PO SCH (09:32)
--- NOTE | 2020-09-08 09:35 | Progress Note - Cardiology ---
Cardiology SOAP Progress Note Objective: I&O/Vital Signs 09/09/20 09/09/20 09/09/20 09/09/20 00:00 01:00 04:00 06:52 Temp 36.8 Pulse 79 77 79 82 Resp 24 20 B/P (MAP) 113/80 (91) 104/72 (83) Pulse Ox 94 95 O2 Delivery High Flow N/C High Flow N/C O2 Flow Rate 2.00 2.00 09/09/20 09/09/20 09/09/20 07:52 09:00 09:31 Temp 36.6 Pulse 98 Resp 20 B/P (MAP) 108/68 (81) Pulse Ox 96 94 95 O2 Delivery High Flow N/C Nasal Cannula Nasal Cannula O2 Flow Rate 4.00 2.00 2.00 09/09/20 00:00 Intake Total 1100 ml Output Total 150 ml Balance 950 ml Weight (Pounds): 180 Weight (Ounces): 0.0 Weight (Calculated Kilograms): 81.374475 Constitutional: appears stated age, AAO x 3, well-developed, well-nourished Respiratory: chest is bilaterally symmetric, lungs clear to auscultation Cardiovascular: regular rate-rhythm, S1 and S2; No diastolic murmur, No systolic murmur Gastrointestional: No tender; soft, audible bowel sounds Extremities: No significant edema Neurologic/Psychiatric: grossly intact (moves all extremities) Skin: No rash, No rash on exposed areas, No ulcerations on exposed areas Results/Procedures: Labs Laboratory Tests 09/09/20 03:37: White Blood Count 15.1H, Red Blood Count 3.17L, Hemoglobin 9.2L, Hematocrit 28L, Mean Corpuscular Volume 89, Mean Corpuscular Hemoglobin 29, Mean Corpuscular Hemoglobin Concent 33, Red Cell Distribution Width 13.6, Platelet Count 360, Mean Platelet Volume 9.1, Immature Granulocyte % (Auto) 1, Neutrophils (%) (Auto) 84H, Lymphocytes (%) (Auto) 6L, Monocytes (%) (Auto) 8, Eosinophils (%) (Auto) 0, Basophils (%) (Auto) 0, Neutrophils # (Auto) 12.7H, Lymphocytes # (Auto) 1.0, Monocytes # (Auto) 1.2H, Eosinophils # (Auto) 0.0, Basophils # (Auto) 0.0, Immature Granulocyte # (Auto) 0.2H, Sodium Level 136, Potassium Level 4.0, Chloride Level 105, Carbon Dioxide Level 20L, Anion Gap 11, Blood Urea Nitrogen 27H, Creatinine 0.97, Estimat Glomerular Filtration Rate > 60, BUN/Creatinine Ratio 28, Glucose Level 104, Calcium Level 8.0L, Corrected Calcium 8.6, Total Bilirubin 0.7, Aspartate Amino Transf (AST/SGOT) 92H, Alanine Aminotransferase (ALT/SGPT) 41, Alkaline Phosphatase 81, Total Protein 6.2L, Albumin 3.2 Procedures NAME: [facility] REC#: [id number] PT STATUS: REG ER : 1945 PHYSICIAN: CAROLYN RICHARDSON DO ADMIT DATE: 09/06/20/ER FS Signed Date of Exam:09/06/20 CHEST 1 VIEW AP/PA ONLY INDICATION: Chest pain, shortness of breath one, hour history of myocardial infarction 3 weeks ago. Recent stent placement. COMPARISON STUDY: Chest from August 15. FINDINGS: Frontal view of the chest demonstrates previous coronary artery bypass graft changes. Heart size is normal. Some pleural-based calcifications and calcified granulomas are stable. There are no pleural effusions. IMPRESSION: There are no acute findings. Dictated by: Dictated on workstation # [id number] Dict: 09/06/20 1128 Trans: 09/06/20 1208 [id number] Interpreted by: BILLIE GONZALES MD Electronically signed by: BILLIE GONZALES MD 09/06/20 1208 A/P: Assessment: CAD - NSTEMI on 09-06-20 H/O NSTEMI on 08/17/20 - H/o CABG x3 vessel in 2010 in [place] (details unknown) - Cardiac cath of 08-17-[address] Sosa - mid vessel occ of LAD, prox or distal OM system of LCX, prox occ of RCA, patent CARPENTER to distal LAD, patent SVG to distal RCA, nonocclusive thrombus in prox portion of SVG to OM treated with PCI (bare metal stenting) with slow flow that improved, 60-70% distal stenosis in SVG to OM treated medically, posterobasal akinesis, LVEF approx 45 - 50%. Echocardiogram of Aug 17, [address] Sosa shows LVEF 40-45%. Grade 1 diastolic dysfunction. LA dilated. PASP 20-25mmHg Reports h/o "internal bleeding" does not wish to be on dual anti-platelet tx [facility] HTN HLD Tobaccoism - cessation advised Plan: No c/o CP at this time We have advised cardiac cath - he is not agreeable at this time and wishes to think about it We have reviewed Dr. Sosa's notes from the weekend Continue tx with ASA and Lovenox Add Brilinta to regimen Clinical Quality Measures AMI/AHF: ASA po Prior to arrival: Yes NIDIA ALBA Sep 08, 2020 09:35
[2020-09-08] MEDS ORDERED: TICAGRELOR 90 MG TABLET (BRILINTA) PO STA (09:48)
--- NOTE | 2020-09-08 09:48 | Progress Note - Hospitalist ---
Subjective HPI/CC On Admission Date Seen by Provider: Sep 08, 2020 Time Seen by Provider: 10:30 This is a 74-year-old white male who had a stent placed by Dr. Garcia 3 weeks ago. He has been somewhat noncompliant with his medications but says he is taking them in the last day or 2. He does note that he continues to smoke but usually not more than 4 to 5 cigarettes a day. He had presented with complaints of chest discomfort that radiated to both arms. He does not have nitroglycerin at home so he did not utilize that. His chest pain did improve after he was given some nitro in the emergency room and he was transferred here for further evaluation. Initial troponin was elevated and EKG shows T wave inversion in the inferior lateral leads. Second troponin is pending. Currently at the time of my interview he denies having any chest pain but does note that he is little short of breath. Subjective/Events-last exam Pt denies any chest pain Does not use home oxygen but is wearing it at 3 liters currently Pt usually sleeps upright in a recliner due to COPD His wears oxygen Pt declined cardiac catheterization today but will think about it Appreciate Dr. Barnes Troponin was elevated Nebulizers will be ordered and home medications restarted Review of Systems General: Fatigue, Malaise Pulmonary: Dyspnea Neurological: Weakness, Incoordination Objective Exam Vital Signs Vital Signs Date Time Temp Pulse Resp B/P (MAP) Pulse Ox O2 Delivery O2 Flow Rate FiO2 09/09/20 04:00 36.8 79 20 104/72 (83) 95 High Flow N/C 2.00 Capillary Refill : Less Than 3 Seconds General Appearance: No Apparent Distress, WD/WN, Chronically ill Respiratory: No Accessory Muscle Use, No Respiratory Distress, Decreased Breath Sounds Cardiovascular: Regular Rate, Rhythm Neurologic/Psychiatric: Alert, Oriented x3, No Motor/Sensory Deficits, Normal Mood/Affect Results/Procedures Lab Laboratory Tests 09/09/20 03:37 Patient resulted labs reviewed. Imaging: Reviewed Imaging Report Assessment/Plan Assessment and Plan Assess & Plan/Chief Complaint Assessment: NSTEMI COPD Hypoxia Plan: Cardiology consult Monitor chest pain Diagnosis/Problems Diagnosis/Problems (1) Chest pain Qualifiers: Chest pain type: unspecified Qualified Codes: R07.9 - Chest pain, unspecified (2) Non-STEMI (non-ST elevated myocardial infarction) Status: Acute (3) ST segment changes on electrocardiogram Status: Acute Clinical Quality Measures AMI/AHF: ASA po Prior to arrival: Yes CARMEN GILLIAM DO Sep 08, 2020 09:48
[2020-09-08] MEDS ORDERED: RT-ALBUTEROL/IPRATROPIUM 3 ML (DUONEB) VIAL INH SCH (10:00)
[2020-09-08] MEDS: ADVAIR HFA 115/21 MCG INHALER 8 GM IH SCH ×2 (10:56→19:00)
--- NOTE | 2020-09-08 11:15 | Progress Note - Cardiology ---
Cardiology SOAP Progress Note Subjective: No cp or palp or syncope Chronic, mild to mod, exertional shortness of breath No n/v/d No focal weakness Gen weakness present Objective: I&O/Vital Signs 09/08/20 09/08/20 09/08/20 09/08/20 00:00 00:20 01:00 03:30 Temp 36.5 Pulse 89 79 Resp 22 B/P (MAP) 99/51 (67) 117/64 (81) Pulse Ox 87 92 92 O2 Delivery Room Air Nasal Cannula Room Air O2 Flow Rate 2.00 09/08/20 09/08/20 09/08/20 09/08/20 04:00 08:18 09:39 10:56 Temp 36.4 36.4 Pulse 81 92 85 Resp 20 36 B/P (MAP) 98/66 (77) 121/70 (87) Pulse Ox 96 96 85 O2 Delivery Nasal Cannula Nasal Cannula Room Air O2 Flow Rate 2.00 2.00 09/08/20 10:58 Pulse Ox 90 O2 Delivery Nasal Cannula O2 Flow Rate 2.00 09/07/20 23:59 Intake Total 125 ml Output Total 1025 ml Balance -900 ml Weight (Pounds): 180 Weight (Ounces): 0.0 Weight (Calculated Kilograms): 81.584663 Constitutional: appears stated age, AAO x 3, well-developed, well-nourished Respiratory: chest is bilaterally symmetric, lungs clear to auscultation Cardiovascular: regular rate-rhythm, S1 and S2; No diastolic murmur; systolic murmur (soft REYNA at card base) Gastrointestional: No tender; soft, audible bowel sounds Extremities: No significant edema Neurologic/Psychiatric: other (moves all limbs equally) Skin: No rash, No rash on exposed areas, No ulcerations on exposed areas Results/Procedures: Labs Laboratory Tests 09/08/20 03:13: Troponin I 104.761*H Laboratory Tests 09/06/20 11:13 09/07/20 08:40 A/P: Assessment: CAD - NSTEMI on 09-06-20 H/O NSTEMI on 08/17/20 - H/o CABG x3 vessel in 2010 in [place] (details unknown) - Cardiac cath of 08-17-[address] Sosa - mid vessel occ of LAD, prox or distal OM system of LCX, prox occ of RCA, patent CARPENTER to distal LAD, patent SVG to distal RCA, nonocclusive thrombus in prox portion of SVG to OM treated with PCI (bare metal stenting) with slow flow that improved, 60-70% distal stenosis in SVG to OM treated medically, posterobasal akinesis, LVEF approx 45 - 50%. Echocardiogram of Aug 17, [address] Sosa shows LVEF 40-45%. Grade 1 di astolic dysfunction. LA dilated. 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 I have also discussed his case with Dr Sosa who took care of the patient over the weekend, from after the patient was admitted to this morning No c/o CP at this time We have advised cardiac cath - he is not agreeable at this time and wishes to think about it We have reviewed Dr. Sosa's notes from the weekend Continue tx with ASA and Lovenox Add Brilinta to regimen Clinical Quality Measures AMI/AHF: ASA po Prior to arrival: Yes TALIA LEARY MD FACP FAC CCDS Sep 08, 2020 11:15
[2020-09-08] MEDS ORDERED: SUCR1TAB PO (11:33)
[2020-09-08] MEDS ORDERED: ASPI-999 PO (11:33)
[2020-09-08] MEDS ORDERED: TICA90TA PO (11:33)
[2020-09-08] MEDS ORDERED: METO-333 PO (11:33)
[2020-09-08] MEDS ORDERED: LISI-556 PO (11:33)
[2020-09-08] MEDS ORDERED: ATOR80TA76 PO (11:33)
[2020-09-08] MEDS ORDERED: OMEP40CA27 PO (11:33)
--- NOTE | 2020-09-08 11:34 | NUR ---
SPOKE WITH THE PT (HE HAS A MED LIST) AND WENT THRU THE EXT MED HISTORY TO COMPLETE THE MED REC I WENT OVER THE PTS MED LIST WITH HIM AND HE WAS ABLE TO TELL ME WHEN/HOW HE TAKES EACH MED OTC MEDS: ASPIRIN CHEW 81MG FISH OIL
[2020-09-08] MEDS: OMEGA 3 (FISH OIL) 1000 MG CAP PO SCH (11:46)
--- NOTE | 2020-09-08 17:53 | NUR ---
PT. REFUSES TO ORDER SOLID FOOD. PT STATES HE HAS SORE GUMS FROM DENTURES AND CAN NOT EVEN EAT MASHED POTATOES OR SOUP OR IT WILL HURT HIS GUMS. ORDERED ICE CREAM AND TAMAZIGHT ICE PER PT REQUEST. PT. REFUSES ENSURE. TAKING FLUIDS WELL. DENIES NAUSEA AT THIS TIME.
[2020-09-08] MEDS ORDERED: NON-FORMULARY MEDICATION 1 EA EA (Fluticasone/Salmeterol (Advair 100-50 Diskus) 1 PUFF) INH PRN (20:15)
[2020-09-08] MEDS: TICAGRELOR 90 MG TABLET (BRILINTA) PO SCH (20:19)
[2020-09-08] MEDS: SUCRALFATE 1 GM (CARAFATE) TAB PO SCH (20:22)
[2020-09-08] MEDS: PANTOPRAZOLE 40 MG (PROTONIX) TAB PO SCH (20:23)
[2020-09-08] MEDS ORDERED: NON-FORMULARY MEDICATION 1 EA EA (Omeprazole 40 MG) PO SCH (21:00)
[2020-09-09] MEDS: NS IV 1000 ML 1,000 ML IV SCH
[2020-09-09] MEDS: ENOXAPARIN 80 MG/0.8 ML (LOVENOX) SYR SC SCH (03:47)
[2020-09-09 04:07] LABS: BASOPHILS % (AUTO) 0 % (0-10); EOSINOPHILS % (AUTO) 0 % (0-10); HEMATOCRIT 28 % (40-54); HEMOGLOBIN 9.2 g/dL (13.3-17.7); LYMPHOCYTES % (AUTO) 6 % (12-44); MEAN CORPUSCULAR HEMOGLOBIN 29 pg (25-34); MEAN CORPUSCULAR HGB CONC 33 g/dL (32-36); MEAN CORPUSCULAR VOLUME 89 fL (80-99); MEAN PLATELET VOLUME 9.1 fL (9.0-12.2); MONOCYTES # (AUTO) 1.2 10^3/uL (0.0-1.0); MONOCYTES % (AUTO) 8 % (0-12); NEUTROPHILS # (AUTO) 12.7 10^3/uL (1.8-7.8); NEUTROPHILS % (AUTO) 84 % (42-75); PLATELET COUNT 360 10^3/uL (130-400); WHITE BLOOD COUNT 15.1 10^3/uL (4.3-11.0)
[2020-09-09 04:17] LABS: ALBUMIN 3.2 GM/DL (3.2-4.5)
[2020-09-09 04:18] LABS: CHLORIDE 105 MMOL/L (98-107); SODIUM 136 MMOL/L (135-145)
[2020-09-09 04:20] LABS: GLUCOSE 104 MG/DL (70-105); TOTAL PROTEIN 6.2 GM/DL (6.4-8.2)
[2020-09-09 04:21] LABS: CARBON DIOXIDE 20 MMOL/L (21-32)
[2020-09-09 04:22] LABS: BILIRUBIN,TOTAL 0.7 MG/DL (0.1-1.0)
[2020-09-09 04:23] LABS: ALKALINE PHOSPHATASE 81 U/L (40-136)
[2020-09-09 04:24] LABS: CREATININE SERUM 0.97 MG/DL (0.60-1.30); GFR ESTIMATED > 60
[2020-09-09 04:25] LABS: BUN/CREATININE RATIO 28
[2020-09-09 04:26] LABS: ALANINE AMINOTRANSFERASE 41 U/L (0-55)
[2020-09-09] MEDS: ASPIRIN E.C. 81 MG (ECOTRIN) TAB PO SCH (08:17)
[2020-09-09] MEDS: OMEGA 3 (FISH OIL) 1000 MG CAP PO SCH (08:17)
[2020-09-09] MEDS: PANTOPRAZOLE 40 MG (PROTONIX) TAB PO SCH ×2 (08:18→20:38)
[2020-09-09] MEDS: SUCRALFATE 1 GM (CARAFATE) TAB PO SCH ×5 (08:18→20:38)
[2020-09-09] MEDS: TICAGRELOR 90 MG TABLET (BRILINTA) PO SCH ×2 (08:18→20:38)
[2020-09-09] MEDS: meTOprolol TARTRATE 25 MG (LOPRESSOR) TABLET PO SCH ×2 (08:20→20:38)
[2020-09-09] MEDS: RT-ALBUTEROL INHALER HFA (VENTOLIN HFA) 18 GM IH SCH ×3 (09:31→21:55)
[2020-09-09] MEDS: ADVAIR HFA 115/21 MCG INHALER 8 GM IH SCH ×2 (09:32→21:59)
--- NOTE | 2020-09-09 09:44 | Progress Note - Cardiology ---
Cardiology SOAP Progress Note Subjective: Sitting up on the side of the bed Denies any c/o CP, SOB or palpitations Objective: I&O/Vital Signs 09/09/20 09/09/20 09/09/20 09/09/20 00:00 01:00 04:00 06:52 Temp 36.8 Pulse 79 77 79 82 Resp 24 20 B/P (MAP) 113/80 (91) 104/72 (83) Pulse Ox 94 95 O2 Delivery High Flow N/C High Flow N/C O2 Flow Rate 2.00 2.00 09/09/20 09/09/20 09/09/20 07:52 09:00 09:31 Temp 36.6 Pulse 98 Resp 20 B/P (MAP) 108/68 (81) Pulse Ox 96 94 95 O2 Delivery High Flow N/C Nasal Cannula Nasal Cannula O2 Flow Rate 4.00 2.00 2.00 09/09/20 00:00 Intake Total 1100 ml Output Total 150 ml Balance 950 ml Weight (Pounds): 180 Weight (Ounces): 0.0 Weight (Calculated Kilograms): 81.366748 Constitutional: appears stated age, AAO x 3, well-developed, well-nourished Respiratory: chest is bilaterally symmetric, lungs clear to auscultation Cardiovascular: regular rate-rhythm, S1 and S2; No diastolic murmur; systolic murmur (soft REYNA at card base) Gastrointestional: No tender; soft, audible bowel sounds Extremities: No significant edema Neurologic/Psychiatric: other (moves all limbs equally) Skin: No rash, No rash on exposed areas, No ulcerations on exposed areas Results/Procedures: Labs Laboratory Tests 09/09/20 03:37: White Blood Count 15.1H, Red Blood Count 3.17L, Hemoglobin 9.2L, Hematocrit 28L, Mean Corpuscular Volume 89, Mean Corpuscular Hemoglobin 29, Mean Corpuscular Hemoglobin Concent 33, Red Cell Distribution Width 13.6, Platelet Count 360, Mean Platelet Volume 9.1, Immature Granulocyte % (Auto) 1, Neutrophils (%) (Auto) 84H, Lymphocytes (%) (Auto) 6L, Monocytes (%) (Auto) 8, Eosinophils (%) (Auto) 0, Basophils (%) (Auto) 0, Neutrophils # (Auto) 12.7H, Lymphocytes # (Auto) 1.0, Monocytes # (Auto) 1.2H, Eosinophils # (Auto) 0.0, Basophils # (Auto) 0.0, Immature Granulocyte # (Auto) 0.2H, Sodium Level 136, Potassium Level 4.0, Chloride Level 105, Carbon Dioxide Level 20L, Anion Gap 11, Blood Urea Nitrogen 27H, Creatinine 0.97, Estimat Glomerular Filtration Rate > 60, BUN/Creatinine Ratio 28, Glucose Level 104, Calcium Level 8.0L, Corrected Calcium 8.6, Total Bilirubin 0.7, Aspartate Amino Transf (AST/SGOT) 92H, Alanine Aminotransferase (ALT/SGPT) 41, Alkaline Phosphatase 81, Total Protein 6.2L, Albumin 3.2 Laboratory Tests 09/09/20 03:37 A/P: Assessment: CAD - NSTEMI on 09-06-20 H/O NSTEMI on 08/17/20 - H/o CABG x3 vessel in 2010 in [place] (details unknown) - Cardiac cath of 08-17-[address] Sosa - mid vessel occ of LAD, prox or distal OM system of LCX, prox occ of RCA, patent CARPENTER to distal LAD, patent SVG to distal RCA, nonocclusive thrombus in prox portion of SVG to OM treated with PCI (bare metal stenting) with slow flow that improved, 60-70% distal stenosis in SVG to OM treated medically, posterobasal akinesis, LVEF approx 45 - 50%. Echocardiogram of Aug 17, [address] Sosa shows LVEF 40-45%. Grade 1 diastolic dysfunction. LA dilated. PASP 20-25mmHg Reports h/o "internal bleeding" does not wish to be on dual anti-platelet tx shelter HTN HLD Tobaccoism - cessation advised Plan: No c/o CP at this time We have again advised cardiac cath - he is not agreeable Continue current regimen Increase activity Clinical Quality Measures AMI/AHF: ASA po Prior to arrival: Yes NIDIA ALBA Sep 09, 2020 09:44
--- NOTE | 2020-09-09 10:35 | Progress Note - Hospitalist ---
Subjective HPI/CC On Admission Date Seen by Provider: Sep 09, 2020 Time Seen by Provider: 09:00 This is a 74-year-old white male who had a stent placed by Dr. Garcia 3 weeks ago. He has been somewhat noncompliant with his medications but says he is taking them in the last day or 2. He does note that he continues to smoke but usually not more than 4 to 5 cigarettes a day. He had presented with complaints of chest discomfort that radiated to both arms. He does not have nitroglycerin at home so he did not utilize that. His chest pain did improve after he was given some nitro in the emergency room and he was transferred here for further evaluation. Initial troponin was elevated and EKG shows T wave inversion in the inferior lateral leads. Second troponin is pending. Currently at the time of my interview he denies having any chest pain but does note that he is little short of breath. Subjective/Events-last exam Pt doing a little better Will need home O2 at DC Likely DC tomorrow Declines cardiac cath Conferred with cardiology Review of Systems Pulmonary: Dyspnea Objective Exam Vital Signs Vital Signs Date Time Temp Pulse Resp B/P (MAP) Pulse Ox O2 Delivery O2 Flow Rate FiO2 09/10/20 03:57 36.4 70 20 91/64 (73) 96 High Flow N/C 2.00 Capillary Refill : Less Than 3 Seconds General Appearance: No Apparent Distress, WD/WN, Chronically ill Respiratory: Chest Non Tender, Lungs Clear, Normal Breath Sounds, No Accessory Muscle Use, No Respiratory Distress, Decreased Breath Sounds Cardiovascular: Regular Rate, Rhythm, No Edema, No Gallop, No JVD, No Murmur, Normal Peripheral Pulses Neurologic/Psychiatric: Alert, Oriented x3, No Motor/Sensory Deficits, Normal Mood/Affect Results/Procedures Lab Patient resulted labs reviewed. Imaging: Reviewed Imaging Report Assessment/Plan Assessment and Plan Assess & Plan/Chief Complaint Assessment: NSTEMI COPD Hypoxia Plan: Cardiology consult Monitor chest pain 09/09/20: Home O2 eval Monitor closely Diagnosis/Problems Diagnosis/Problems (1) Chest pain Qualifiers: Chest pain type: unspecified Qualified Codes: R07.9 - Chest pain, unspecified (2) Non-STEMI (non-ST elevated myocardial infarction) Status: Acute (3) ST segment changes on electrocardiogram Status: Acute Clinical Quality Measures AMI/AHF: ASA po Prior to arrival: Yes CARMEN GILLIAM DO Sep 09, 2020 10:35
--- NOTE | 2020-09-09 11:00 | NUR ---
PT ARRIVED FROM CARDIAC STEPDOWN. ORIENTED TO ROOM. REPORT RECEIVED FROM PREVIOUS NURSE, THIS NURSE ASSUMES CARE. ORDERS REVIEWED.
--- NOTE | 2020-09-09 14:33 | Progress Note - Cardiology ---
Cardiology SOAP Progress Note Subjective: No cp No shortness of breath No palp or syncope No swelling Gen malaise Objective: I&O/Vital Signs 09/09/20 09/09/20 09/09/20 09/09/20 04:00 06:52 07:52 09:00 Temp 36.8 36.6 Pulse 79 82 98 Resp 20 20 B/P (MAP) 104/72 (83) 108/68 (81) Pulse Ox 95 96 94 O2 Delivery High Flow N/C High Flow N/C Nasal Cannula O2 Flow Rate 2.00 4.00 2.00 09/09/20 09/09/20 09:31 12:00 Temp 36.3 Pulse 82 Resp 24 B/P (MAP) 105/59 (74) Pulse Ox 95 94 O2 Delivery Nasal Cannula High Flow N/C O2 Flow Rate 2.00 4.00 09/09/20 00:00 Intake Total 1100 ml Output Total 150 ml Balance 950 ml Weight (Pounds): 180 Weight (Ounces): 0.0 Weight (Calculated Kilograms): 81.407086 Constitutional: appears stated age, AAO x 3, well-developed, well-nourished Respiratory: chest is bilaterally symmetric, lungs clear to auscultation Cardiovascular: regular rate-rhythm, S1 and S2; No diastolic murmur; systolic murmur (soft REYNA at card base) Gastrointestional: No tender; soft, audible bowel sounds Extremities: No significant edema Neurologic/Psychiatric: other (moves all limbs equally) Skin: No rash, No rash on exposed areas, No ulcerations on exposed areas Results/Procedures: Labs Laboratory Tests 09/09/20 03:37: White Blood Count 15.1H, Red Blood Count 3.17L, Hemoglobin 9.2L, Hematocrit 28L, Mean Corpuscular Volume 89, Mean Corpuscular Hemoglobin 29, Mean Corpuscular Hemoglobin Concent 33, Red Cell Distribution Width 13.6, Platelet Count 360, Mean Platelet Volume 9.1, Immature Granulocyte % (Auto) 1, Neutrophils (%) (Auto) 84H, Lymphocytes (%) (Auto) 6L, Monocytes (%) (Auto) 8, Eosinophils (%) (Auto) 0, Basophils (%) (Auto) 0, Neutrophils # (Auto) 12.7H, Lymphocytes # (Auto) 1.0, Monocytes # (Auto) 1.2H, Eosinophils # (Auto) 0.0, Basophils # (Auto) 0.0, Immature Granulocyte # (Auto) 0.2H, Sodium Level 136, Potassium Level 4.0, Chloride Level 105, Carbon Dioxide Level 20L, Anion Gap 11, Blood Urea Nitrogen 27H, Creatinine 0.97, Estimat Glomerular Filtration Rate > 60, B UN/Creatinine Ratio 28, Glucose Level 104, Calcium Level 8.0L, Corrected Calcium 8.6, Total Bilirubin 0.7, Aspartate Amino Transf (AST/SGOT) 92H, Alanine Bansal otransferase (ALT/SGPT) 41, Alkaline Phosphatase 81, Total Protein 6.2L, Albumin 3.2 Laboratory Tests 09/09/20 03:37 A/P: Assessment: CAD - NSTEMI on 09-06-20 H/O NSTEMI on 08/17/20 - H/o CABG x3 vessel in 2010 in [place] (details unknown) - Cardiac cath of 08-17-[address] Sosa - mid vessel occ of LAD, prox or distal OM system of LCX, prox occ of RCA, patent CARPENTER to distal LAD, patent SVG to distal RCA, nonocclusive thrombus in prox portion of SVG to OM treated with PCI (bare metal stenting) with slow flow that improved, 60-70% distal stenosis in SVG to OM treated medically, posterobasal akinesis, LVEF approx 45 - 50%. Echocardiogram of Aug 17, [address] Sosa shows LVEF 40-45%. Grade 1 diastolic dysfunction. LA dilated. PASP 20-25mmHg Reports h/o "internal bleeding" does not wish to be on dual anti-platelet tx l jacob term HTN HLD Tobaccoism - cessation advised Plan: No c/o CP at this time We have again advised cardiac cath - this was again discussed today. He refuses Reduce enoxaparin to DVT prophylaxis dose Continue current regimen Increase activity Clinical Quality Measures AMI/AHF: ASA po Prior to arrival: Yes TALIA LEARY MD FACP FAC CCDS Sep 09, 2020 14:33
--- NOTE | 2020-09-09 16:21 | NUR ---
FOUND PT ON O2 @ 4 LPM. I ASKED PT ABOUT IT AND HE STATED THAT HE TURNED IT UP THEN IMEDIATLY STATED THAT HE ASKED THE NURSE TO TURN IT UP. PT STATED THAT HE COULDN'T BREATHE WITH IT TURNED DOWN.
[2020-09-10] MEDS: RT-ALBUTEROL INHALER HFA (VENTOLIN HFA) 18 GM IH SCH ×2 (02:41→07:52)
[2020-09-10] MEDS ORDERED: ENOXAPARIN 40 MG/0.4 ML (LOVENOX) SYR SQ SCH (04:00)
[2020-09-10 06:26] LABS: CHLORIDE 104 MMOL/L (98-107); POTASSIUM 3.5 MMOL/L (3.6-5.0); SODIUM 138 MMOL/L (135-145)
[2020-09-10 06:27] LABS: CALCIUM 8.2 MG/DL (8.5-10.1); GLUCOSE 116 MG/DL (70-105); HEMOGLOBIN 9.6 g/dL (13.3-17.7); MEAN PLATELET VOLUME 9.6 fL (9.0-12.2); WHITE BLOOD COUNT 13.3 10^3/uL (4.3-11.0)
[2020-09-10 06:29] LABS: CARBON DIOXIDE 22 MMOL/L (21-32)
[2020-09-10 06:31] LABS: CREATININE SERUM 0.94 MG/DL (0.60-1.30); GFR ESTIMATED > 60
[2020-09-10 06:32] LABS: BUN/CREATININE RATIO 32
[2020-09-10] MEDS: ADVAIR HFA 115/21 MCG INHALER 8 GM IH SCH (07:52)
[2020-09-10] MEDS: OMEGA 3 (FISH OIL) 1000 MG CAP PO SCH (08:28)
[2020-09-10] MEDS: ASPIRIN E.C. 81 MG (ECOTRIN) TAB PO SCH (08:28)
[2020-09-10] MEDS: TICAGRELOR 90 MG TABLET (BRILINTA) PO SCH (08:28)
[2020-09-10] MEDS: meTOprolol TARTRATE 25 MG (LOPRESSOR) TABLET PO SCH (08:28)
[2020-09-10] MEDS: PANTOPRAZOLE 40 MG (PROTONIX) TAB PO SCH (08:28)
[2020-09-10] MEDS: SUCRALFATE 1 GM (CARAFATE) TAB PO SCH (08:28)
--- NOTE | 2020-09-10 09:26 | NUR ---
during pt assessment, pt was found to not have telemetry on at this time, even though ordered. Pt stated that "they" took it off of him yesterday and does not wish to have it back on at this time even though it is ordered.
[2020-09-10] MEDS ORDERED: NS IV 500 ML 500 ML IV SCH (10:15)
--- NOTE | 2020-09-10 11:09 | Progress Note - Cardiology ---
Cardiology SOAP Progress Note Subjective: Has been up ambulating in the halls No c/o CP or SOB Wants to go home Objective: I&O/Vital Signs 09/09/20 09/10/20 09/10/20 09/10/20 23:55 02:41 03:57 07:53 Temp 36.4 36.4 Pulse 73 70 Resp 20 20 B/P (MAP) 93/58 (70) 91/64 (73) Pulse Ox 97 98 96 98 O2 Delivery High Flow N/C Nasal Cannula High Flow N/C Nasal Cannula O2 Flow Rate 2.00 4.00 2.00 4.00 09/10/20 09/10/20 08:00 09:00 Temp 36.4 Pulse 71 Resp 18 B/P (MAP) 100/65 (77) Pulse Ox 99 95 O2 Delivery Nasal Cannula Room Air O2 Flow Rate 4.00 4.00 09/10/20 00:00 Intake Total 1350 ml Balance 1350 ml Weight (Pounds): 180 Weight (Ounces): 0.0 Weight (Calculated Kilograms): 81.993366 Constitutional: appears stated age, AAO x 3, well-developed, well-nourished Respiratory: chest is bilaterally symmetric, lungs clear to auscultation Cardiovascular: regular rate-rhythm, S1 and S2; No diastolic murmur; systolic murmur (soft REYNA at card base) Gastrointestional: No tender; soft, audible bowel sounds Extremities: No significant edema Neurologic/Psychiatric: other (moves all limbs equally) Skin: No rash, No rash on exposed areas, No ulcerations on exposed areas Results/Procedures: Labs Laboratory Tests 09/10/20 05:41: White Blood Count 13.3H, Red Blood Count 3.34L, Hemoglobin 9.6L, Hematocrit 30L, Mean Corpuscular Volume 89, Mean Corpuscular Hemoglobin 29, Mean Corpuscular Hemoglobin Concent 32, Red Cell Distribution Width 13.7, Platelet Count 401H, Mean Platelet Volume 9.6, Sodium Level 138, Potassium Level 3.5L, Chloride Level 104, Carbon Dioxide Level 22, Anion Gap 12, Blood Urea Nitrogen 30H, Creatinine 0.94, Estimat Glomerular Filtration Rate > 60, BUN/Creatinine Ratio 32, Glucose Level 116H, Calcium Level 8.2L Laboratory Tests 09/09/20 03:37 09/10/20 05:41 A/P: Assessment: CAD - NSTEMI on 09-06-20 H/O NSTEMI on 08/17/20 - H/o CABG x3 vessel in 2011 in [place] (details unknown) - Cardiac cath of 08-17-[address] Sosa - mid vessel occ of LAD, prox or distal OM system of LCX, prox occ of RCA, patent CARPENTER to distal LAD, patent SVG to distal RCA, nonocclusive thrombus in prox portion of SVG to OM treated with PCI (bare metal stenting) with slow flow that improved, 60-70% distal stenosis in SVG to OM treated medically, posterobasal akinesis, LVEF approx 45 - 50%. Echocardiogram of Aug 17, [address] Sosa shows LVEF 40-45%. Grade 1 diastolic dysfunction. LA dilated. 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 He continues to refuse and wishes to go home Continue current regimen F/U next week Clinical Quality Measures AMI/AHF: ASA po Prior to arrival: Yes NIDIA ALBA Sep 10, 2020 11:09
--- NOTE | 2020-09-10 11:14 | Discharge Summary ---
Discharge Summary Hospital Course Was the Problem List Reviewed?: Yes Problems/Dx: (1) Chest pain Qualifiers: Qualified Codes: R07.9 - Chest pain, unspecified (2) Non-STEMI (non-ST elevated myocardial infarction) Status: Acute (3) ST segment changes on electrocardiogram Status: Acute Hospital Course Date of Admission: Sep 06, 2020 at 13:46 Admission Diagnosis : Family Physician/Provider: Héctor Purcell MD Date of Discharge: 09/10/20 Discharge Diagnosis: NSTEMI, CAD, COPD Hospital Course: Hospital course: Pt had a brief hospital course, he was admitted for chest pain found to have elevated Troponin, he declined a cardiac catheterization, overall he did well, was able to stabilize and was discharged, he did not require home oxygen and was discharged on his home medication on my end. Labs and Pending Lab Test: Laboratory Tests 09/10/20 05:41: White Blood Count 13.3H, Red Blood Count 3.34L, Hemoglobin 9.6L, Hematocrit 30L, Mean Corpuscular Volume 89, Mean Corpuscular Hemoglobin 29, Mean Corpuscular Hemoglobin Concent 32, Red Cell Distribution Width 13.7, Platelet Count 401H, Mean Platelet Volume 9.6, Sodium Level 138, Potassium Level 3.5L, Chloride Level 104, Carbon Dioxide Level 22, Anion Gap 12, Blood Urea Nitrogen 30H, Creatinine 0.94, Estimat Glomerular Filtration Rate > 60, BUN/Creatinine Ratio 32, Glucose Level 116H, Calcium Level 8.2L Home Meds Active Reported Aspirin 81 Mg Tab.chew 81 Mg PO DAILY Brilinta (Ticagrelor) 90 Mg Tablet 90 Mg PO BID Metoprolol Tartrate 25 Mg Tablet 25 Mg PO BID Atorvastatin Calcium 80 Mg Tablet 80 Mg PO DAILY Lisinopril 5 Mg Tablet 5 Mg PO DAILY Omeprazole 40 Mg Capsule.dr 40 Mg PO BID Sucralfate 1 Gm Tablet 1 Gm PO QID Fish Oil 1,000 mg Capsule ([place] 3 Polyunsat Fatty Acids) 1,000 Mg Cap 1,000 Mg PO TID Advair 100-50 Diskus (Fluticasone/Salmeterol) 1 Each Blst.w.dev 1 Puff INH BID PRN Ventolin Hfa (Albuterol Sulfate) 1 Puff Puff 2 Puff IH Q4H PRN Assessment/Pt Instructions [facility] 1 week Discharge Planning: <30 minutes discharge planning Discharge Instructions Discharge Diet: Cardiac Diet Activity as Tolerated: Yes Discharge Physical Examination Vital Signs Vital Signs Date Time Temp Pulse Resp B/P (MAP) Pulse Ox O2 Delivery O2 Flow Rate FiO2 09/10/20 09:00 95 Room Air 09/10/20 08:00 36.4 71 18 100/65 (77) 4.00 4.00 General Appearance: No Apparent Distress, WD/WN, Chronically ill Allergies: Coded Allergies: warfarin (Verified Allergy, Unknown, 08/16/20) midazolam (Verified Adverse Reaction, Severe, 08/18/20) PT RECEIVED VERSED FOR HEART CATH, THEY HAD TO REVERSE MEDICATION DUE TO BEHAVIOR clopidogrel (Verified Adverse Reaction, Unknown, ringing in ears, 08/17/20) Discharge Summary Date of Admission Sep 06, 2020 at 13:46 Date of Discharge Discharge Date: Sep 10, 2020 Admission Diagnosis Non-ST segment elevation NC Coronary artery disease-status post stents 3 weeks ago COPD Tobaccoism Elevated liver function tests Mild anemia Medical noncompliance Patient troponin was markedly elevated this morning. has seen the patient in consult and will proceed as conditions indicate Discharge Diagnosis Assessment: NSTEMI COPD Hypoxia Plan: Cardiology consult Monitor chest pain 09/09/20: Home O2 eval Monitor closely (1) Chest pain Qualifiers: Qualified Codes: R07.9 - Chest pain, unspecified (2) Non-STEMI (non-ST elevated myocardial infarction) Status: Acute (3) ST segment changes on electrocardiogram Status: Acute Clinical Quality Measures AMI/AHF: ASA po Prior to arrival: Yes CARMEN GILLIAM DO Sep 10, 2020 11:14
--- NOTE | 2020-09-10 11:28 | NUR ---
PATIENT WAS ON ROOM AIR UPON ENTERING ROOM SAT WAS 93%AND REMAINED DURING WALK ON ROOM AIR PATIENT WAS WALKED ON ROOM AIR SAT WENT TO 90% AFTER WALK PATIENT SAT WENT TO 92% PATIENT DID NOT QUALIFY FOR HOME OXYGEN Addendum: 09/10/20 at 1129 by NAM ARREOLA RT Amended: Links added.
--- NOTE | 2020-09-10 11:28 | NUR ---
CM/SS: Visited with pt as per plan for discharge related to needs. Plan: Pt is from home and will return there with no identified needs. Summary: Pt is eager to discharge and does not seem to have time to talk with this worker. Pt reports his is on her way to pick him up from [place]. Pt reports that his takes care of him and he has no other needs. He is reminded it still may be a little bit before she can be discharged. Pt is wished well.
== END 2020-09-10 12:00 | disposition home or self-care (01) | DRG 281 ==
LOC: EDUNIT# 11:02 → ER FS 11:05 → CSD 13:46 → 4TH 09-09 11:00
PROVIDERS: ADMIT Internal Medicine; ATTEND Internal Medicine
DX: I21.4 Non-ST elevation (NSTEMI) myocardial infarction (principal); I25.810 Atherosclerosis of coronary artery bypass graft(s) without angina pectoris; I22.2 Subsequent non-ST elevation (NSTEMI) myocardial infarction; I25.10 Atherosclerotic heart disease of native coronary artery without angina pectoris; F17.210 Nicotine dependence, cigarettes, uncomplicated; J44.9 Chronic obstructive pulmonary disease, unspecified; D64.9 Anemia, unspecified; Z91.19 Patient's noncompliance with other medical treatment and regimen; Z95.5 Presence of coronary angioplasty implant and graft; Z95.1 Presence of aortocoronary bypass graft; Z79.02 Long term (current) use of antithrombotics/antiplatelets; Z79.82 Long term (current) use of aspirin; Z88.8 Allergy status to other drugs, medicaments and biological substances
CPT/HCPCS: 36415; 71045; 80048; 80053; 84484; 85007; 85025; 85027; 85610; 85730; 93005; 94640; 94760; 94761

== ENCOUNTER 2020-09-16 19:48 | Inpatient (IN) | payer MEDICARE, MEDICAID ==
[~2020-09-16] VITALS: Ht 177.8 cm; Wt 79.6 kg
[~2020-09-16 19:48] MED LIST changes: +ASPI-999 PO; -LISI-556 PO; +LISI-729 PO; +OMEP40CA27 PO; +SUCR1TAB PO
[2020-09-16] MEDS ORDERED: methylPREDNISolone 40 MG/ML (Solu-MEDROL) VIAL IV ONE (20:00)
--- NOTE | 2020-09-16 20:05 | ED General ---
General Stated Complaint: CHEST PAIN/WEAKNESS Source of Information: Patient, EMS Exam Limitations: No Limitations History of Present Illness Date Seen by Provider: Sep 16, 2020 Time Seen by Provider: 19:55 Initial Comments 74-year-old male presents with 1 week of feeling weakness. Recent hospital admission for "heart attack" in [facility], he states he stayed 5 days and was sent home. Denies recent illness, fever chills. Does have history of COPD and states he always has some shortness of air, it may be a little worse now. Given a DuoNeb in route by EMS and feeling little better on arrival. Denies chest pain currently. Allergies and Home Medications Allergies Coded Allergies: warfarin (Verified Allergy, Unknown, 08/16/20) midazolam (Verified Adverse Reaction, Severe, 08/18/20) PT RECEIVED VERSED FOR HEART CATH, THEY HAD TO REVERSE MEDICATION DUE TO BEHAVIOR clopidogrel (Verified Adverse Reaction, Unknown, ringing in ears, 08/17/20) Home Medications Albuterol Sulfate 1 Puff Puff, 2 PUFF IH Q4H PRN for SHORTNESS OF BREATH, (Reported) Aspirin 81 Mg Tab.chew, 81 MG PO DAILY, (Reported) Atorvastatin Calcium 80 Mg Tablet, 80 MG PO DAILY, (Reported) Fluticasone/Salmeterol 1 Each Blst.w.dev, 1 PUFF INH BID PRN for SHORTNESS OF BREATH, (Reported) Metoprolol Tartrate 25 Mg Tablet, 25 MG PO BID, (Reported) [place] 3 Polyunsat Fatty Acids 1,000 Mg Cap, 1,000 MG PO TID, (Reported) Omeprazole 40 Mg Capsule.dr, 40 MG PO BID, (Reported) Sucralfate 1 Gm Tablet, 1 GM PO QID, (Reported) Ticagrelor 90 Mg Tablet, 90 MG PO BID, (Reported) Patient Home Medication List Home Medication List Reviewed: Yes Review of Systems Review of Systems Constitutional: No chills, No dizziness, No fever; malaise, weakness EENTM: no symptoms reported Respiratory: cough, short of breath, wheezing Cardiovascular: No chest pain, No edema, No palpitations, No syncope Gastrointestinal: No abdominal pain, No vomiting Musculoskeletal: No back pain, No joint pain Psychiatric/Neurological: Denies Headache, Denies Seizure Past Hpwfdqn-Omihkl-Yxahwc Hx Past Med/Social Hx: Reviewed Nursing Past Med/Soc Hx Patient Social History Alcohol Beverage of Choice: Beer Type Used: Cigarettes 2nd Hand Smoke Exposure: Yes Recent Hopitalizations: No Seasonal Allergies Seasonal Allergies: No Past Medical History Surgeries: Yes (R ARM DEAN, L WRIST, HERNIA, KIDNEY STONE REMOVED) CABG Respiratory: Yes Asthma, COPD Cardiac: Yes (HAD CABG) Coronary Artery Disease, Heart Attack, Rheumatic Fever Neurological: No Genitourinary: Yes Kidney Stones Gastrointestinal: No Musculoskeletal: Yes (R ARM) Fractures Endocrine: No HEENT: No Cancer: No Psychosocial: No Integumentary: No Blood Disorders: No (REPORTS STOPPED BLOOD THINNERS HGB LOW IN PAST) Physical Exam Vital Signs Vital Signs - First Documented 09/16/20 19:48 Temp 35.8 Pulse 74 Resp 19 B/P (MAP) 93/54 (67) Pulse Ox 71 O2 Delivery Room Air Capillary Refill : Height, Weight, BMI Height: 5'10.00" Weight: 180lbs. 0.0oz. 81.374691cm; 25.24 BMI Method: General Appearance: No Apparent Distress, Chronically ill Eyes: Bilateral Eye Normal Inspection, Bilateral Eye PERRL, Bilateral Eye EOMI HEENT: PERRL/EOMI, Normal ENT Inspection Neck: Normal Inspection, Non Tender, Supple Respiratory: Chest Non Tender, No Accessory Muscle Use, No Respiratory Distress, Decreased Breath Sounds; No Respiratory Distress; Rhonci, Wheezing (external) Cardiovascular: Regular Rate, Rhythm, No JVD, No Murmur Gastrointestinal: Non Tender, Soft Back: Normal Inspection, No CVA Tenderness Extremity: Normal Capillary Refill, Normal Inspection Focused Exam Lactate Level 09/16/20 20:09: Lactic Acid Level 2.33*H Lactic Acid Level Laboratory Tests Test 09/16/20 20:09 Lactic Acid Level 2.33 MMOL/L (0.50-2.00) *H Progress/Results/Core Measures Suspected Sepsis SIRS Temperature: Pulse: Respiratory Rate: Laboratory Tests 09/16/20 20:09: White Blood Count 13.4H Blood Pressure / Mean: 09/16/20 20:09: Lactic Acid Level 2.33*H Laboratory Tests 09/16/20 20:09: Creatinine 1.16, Platelet Count 604H, Total Bilirubin 0.5 Results/Orders Lab Results Laboratory Tests Test 09/16/20 20:09 Range/Units White Blood Count 13.4 H 4.3-11.0 10^3/uL Red Blood Count 3.79 L 4.35-5.85 10^6/uL Hemoglobin 10.8 L 13.3-17.7 G/DL Hematocrit 34 L 40-54 % Mean Corpuscular Volume 89 80-99 FL Mean Corpuscular Hemoglobin 28 25-34 PG Mean Corpuscular Hemoglobin Concent 32 32-36 G/DL Red Cell Distribution Width 14.1 10.0-14.5 % Platelet Count 604 H 130-400 10^3/uL Mean Platelet Volume 9.3 7.4-10.4 FL Immature Granulocyte % (Auto) 1 % Neutrophils (%) (Auto) 88 H 42-75 % Lymphocytes (%) (Auto) 4 L 12-44 % Monocytes (%) (Auto) 7 0-12 % Eosinophils (%) (Auto) 0 0-10 % Basophils (%) (Auto) 0 0-10 % Neutrophils # (Auto) 11.9 H 1.8-7.8 X 10^3 Lymphocytes # (Auto) 0.5 L 1.0-4.0 X 10^3 Monocytes # (Auto) 0.9 0.0-1.0 X 10^3 Eosinophils # (Auto) 0.1 0.0-0.3 10^3/uL Basophils # (Auto) 0.0 0.0-0.1 10^3/uL Immature Granulocyte # (Auto) 0.1 0.0-0.1 10^3/uL Neutrophils % (Manual) 85 % Lymphocytes % (Manual) 5 % Monocytes % (Manual) 8 % Band Neutrophils 2 % Hypochromasia 1+ Sodium Level 141 135-145 MMOL/L Potassium Level 4.2 3.6-5.0 MMOL/L Chloride Level 101 98-107 MMOL/L Carbon Dioxide Level 29 21-32 MMOL/L Anion Gap 11 5-14 MMOL/L Blood Urea Nitrogen 30 H 7-18 MG/DL Creatinine 1.16 0.60-1.30 MG/DL Estimat Glomerular Filtration Rate > 60 BUN/Creatinine Ratio 26 Glucose Level 140 H 70-105 MG/DL Lactic Acid Level 2.33 *H 0.50-2.00 MMOL/L Calcium Level 9.0 8.5-10.1 MG/DL Corrected Calcium 9.6 8.5-10.1 MG/DL Total Bilirubin 0.5 0.1-1.0 MG/DL Aspartate Amino Transf (AST/SGOT) 32 5-34 U/L Alanine Aminotransferase (ALT/SGPT) 37 0-55 U/L Alkaline Phosphatase 103 40-136 U/L Troponin I 1.52 *H <0.30 NG/ML C-Reactive Protein 4.37 H <0.50 MG/DL Pro-B-Type Natriuretic Peptide 82755.0 H <75.0 PG/ML Total Protein 7.2 6.4-8.2 GM/DL Albumin 3.3 3.2-4.5 GM/DL My Orders Orders - ROVENSTINECAROLYN L DO Ed Iv/Invasive Line Start (09/16/20 19:56) Troponin I Fs (09/16/20 19:56) Chest 1 View Ap/Pa Only (09/16/20 19:56) Comprehensive Metabolic Panel (09/16/20 19:56) Cbc With Automated Diff (09/16/20 19:56) Probnp Fs (09/16/20 19:56) Lactic Acid Analyzer (09/16/20 19:56) Methylprednisolone Sod Succ (Solu-Medrol (09/16/20 20:00) Procalcitonin (Pct) (09/16/20 20:31) Crp Fs (09/16/20 20:31) Blood Culture (09/16/20 20:33) Levofloxacin 750 Mg/150 Ml Iv (Levaquin (09/16/20 20:45) Manual Differential (09/16/20 20:09) Blood Culture (09/16/20 20:09) Ekg Tracing (09/16/20 21:04) Medications Given in ED Current Medications Medications Dose Ordered Sig/Gregory Route Start Time Stop Time Status Last Admin Dose Admin Levofloxacin/ Dextrose 150 ml @ 100 mls/hr ONCE ONCE IV 09/16/20 20:45 09/16/20 22:14 09/16/20 20:47 100 MLS/HR Methylprednisolone Sodium Succinate 80 mg ONCE ONCE IV 09/16/20 20:00 09/16/20 20:01 DC 09/16/20 20:47 80 MG Vital Signs/I&O 09/16/20 19:48 Temp 35.8 Pulse 74 Resp 19 B/P (MAP) 93/54 (67) Pulse Ox 71 O2 Delivery Room Air Capillary Refill : Diagnostic Imaging Diagonstic Imaging: Xray Plain Films/CT/US/NM/MRI: chest Comments Exam: Portable chest x-ray upright view. Comparisons: Chest x-ray dated 09/06/2020. Findings: There is interval development of moderate patchy areas of consolidation and airspace opacities throughout the right lung most pronounced in the right upper lobe and right lung base region. There is subtle slight increased patchy airspace opacities involving the left lung. Increased lung markings throughout both lungs are again noted. There is no definite pleural effusion or pneumothorax seen. Pulmonary vasculature and cardiac silhouette are within normal limits as visualized. Stable postop changes to the chest. There are degenerative spurs involving the thoracic spine. IMPRESSION: 1: There is interval development of moderate diffuse infiltrates involving the right lung concerning for pneumonia. 2: Subtle airspace opacities involving left lung which may represent atelectasis or infiltrate. 3: Background chronic lung changes are again noted. Dictated on workstation # [id number] Dict: 09/16/202004 Trans: 09/16/202010 [facility] [id number] Interpreted by: JOHNNY TRUJILLO MD Electronically signed by: Departure Communication (Admissions) Time/Spoke to Admitting Phy: 21:10 Dr Villagomez accepts for admission Impression Primary Impression: Pneumonia Qualified Codes: J18.9 - Pneumonia, unspecified organism Disposition: 30 STILL A PATIENT Condition: Stable Admissions Decision to Admit Reason: Admit from ER (General) Decision to Admit/Date: Sep 16, 2020 Time/Decision to Admit Time: 20:08 Departure-Patient Inst. Referrals: GONZALEZ ANN MD (PCP/Family) Primary Care Physician CAROLYN RICHARDSON DO Sep 16, 2020 20:05
--- NOTE | 2020-09-16 20:11 | Diagnostic Imaging Report ---
Clinical Indications: Patient with shortness of air and weakness. Exam: Portable chest x-ray upright view. Comparisons: Chest x-ray dated 09/06/2020. Findings: There is interval development of moderate patchy areas of consolidation and airspace opacities throughout the right lung most pronounced in the right upper lobe and right lung base region. There is subtle slight increased patchy airspace opacities involving the left lung. Increased lung markings throughout both lungs are again noted. There is no definite pleural effusion or pneumothorax seen. Pulmonary vasculature and cardiac silhouette are within normal limits as visualized. Stable postop changes to the chest. There are degenerative spurs involving the thoracic spine. IMPRESSION: 1: There is interval development of moderate diffuse infiltrates involving the right lung concerning for pneumonia. 2: Subtle airspace opacities involving left lung which may represent atelectasis or infiltrate. 3: Background chronic lung changes are again noted. Dictated by: Dictated on workstation # [id number]
[2020-09-16 20:29] LABS: BASOPHILS % (AUTO) 0 % (0-10); EOSINOPHILS # (AUTO) 0.1 10^3/uL (0.0-0.3); EOSINOPHILS % (AUTO) 0 % (0-10); HEMATOCRIT 34 % (40-54); HEMOGLOBIN 10.8 G/DL (13.3-17.7); LYMPHOCYTES # (AUTO) 0.5 X 10^3 (1.0-4.0); LYMPHOCYTES % (AUTO) 4 % (12-44); MEAN CORPUSCULAR HEMOGLOBIN 28 PG (25-34); MEAN CORPUSCULAR HGB CONC 32 G/DL (32-36); MEAN CORPUSCULAR VOLUME 89 FL (80-99); MEAN PLATELET VOLUME 9.3 FL (7.4-10.4); MONOCYTES # (AUTO) 0.9 X 10^3 (0.0-1.0); MONOCYTES % (AUTO) 7 % (0-12); NEUTROPHILS # (AUTO) 11.9 X 10^3 (1.8-7.8); NEUTROPHILS % (AUTO) 88 % (42-75); PLATELET COUNT 604 10^3/uL (130-400); WHITE BLOOD COUNT 13.4 10^3/uL (4.3-11.0)
[2020-09-16 20:39] LABS: BAND NEUTROPHILS 2 %; LYMPHOCYTES % (MANUAL) 5 %; MONOCYTES % (MANUAL) 8 %; NEUTROPHILS % (MANUAL) 85 %
[2020-09-16 20:41] LABS: HYPOCHROMASIA 1+
[2020-09-16] MEDS ORDERED: LEVOFLOXACIN 750 MG/150 ML IV 150 ML IV ONE (20:45)
[2020-09-16 20:57] LABS: ALANINE AMINOTRANSFERASE 37 U/L (0-55); ALBUMIN 3.3 GM/DL (3.2-4.5); ALKALINE PHOSPHATASE 103 U/L (40-136); BILIRUBIN,TOTAL 0.5 MG/DL (0.1-1.0); BUN/CREATININE RATIO 26; CARBON DIOXIDE 29 MMOL/L (21-32); CHLORIDE 101 MMOL/L (98-107); CREATININE SERUM 1.16 MG/DL (0.60-1.30); GFR ESTIMATED > 60; GLUCOSE 140 MG/DL (70-105); POTASSIUM 4.2 MMOL/L (3.6-5.0); SODIUM 141 MMOL/L (135-145); TOTAL PROTEIN 7.2 GM/DL (6.4-8.2)
[2020-09-17] VITALS (8 sets, daily range): BP systolic 93–142; BP diastolic 54–65
[2020-09-17] MEDS ORDERED: RT-ALBUTEROL/IPRATROPIUM 3 ML (DUONEB) VIAL INH PRN (02:15)
[2020-09-17] MEDS ORDERED: RT-ALBUTEROL/IPRATROPIUM 3 ML (DUONEB) VIAL INH SCH (03:00)
[2020-09-17] MEDS ORDERED: NS IV 1000 ML 1,000 ML ONE (03:15)
[2020-09-17] MEDS: NS IV 1000 ML 1,000 ML IV SCH ×2 (03:30→11:39)
[2020-09-17] MEDS ORDERED: RT-ALBUTEROL INHALER HFA (VENTOLIN HFA) 18 GM IH SCH (07:00)
[2020-09-17] MEDS: cefTRIAXone 1,000 MG/SWFI 10 ML IV PUSH IV SCH ×2 (08:35)
[2020-09-17] MEDS ORDERED: AZITHROMYCIN 500 MG/NS 250 ML IVPB IV ONE ×2 (09:00)
[2020-09-17] MEDS: RT-ALBUTEROL INHALER HFA (VENTOLIN HFA) 18 GM IH SCH ×4 (10:01→21:50)
[2020-09-17] MEDS: IPRATROPIUM INHALER (ATROVENT) 12.9 GM INH SCH ×4 (10:01→21:52)
--- NOTE | 2020-09-17 18:32 | History & Physical ---
HPI History of Present Illness: 74 yo M that was recently admitted for NSTEMI and had stent placement that presented to ER with increasing shortness of breath and cough. Patient states that he has not had any fever. States that he has been using his 's oxygen at home and it made him feel some better. Denies any chest pain. States that he has been taking all of his new medications at home. Denies any sick contacts. In the ER he was found to have new consolidation and was recommended for admission for respiratory distress and treatment of PNA Source: patient Exam Limitations: no limitations Date seen by provider: Sep 17, 2020 Time Seen by Provider: 10:45 Attending Physician Artie Villagomez MD PCP SelfHéctor MD Consult Date of Admission Sep 16, 2020 at 21:15 Home Medications Home Medications Reviewed patient Home Medication Reconciliation performed by pharmacy medication reconciliations radiation therapy technician and/or nursing. Patients Allergies have been reviewed. Allergies Coded Allergies: warfarin (Verified Allergy, Unknown, 08/16/20) midazolam (Verified Adverse Reaction, Severe, 08/18/20) PT RECEIVED VERSED FOR HEART CATH, THEY HAD TO REVERSE MEDICATION DUE TO BEHAVIOR clopidogrel (Verified Adverse Reaction, Unknown, ringing in ears, 08/17/20) HWJ-Juwykt-Nocddq Hx Patient Social History Smoking Status: Current Everyday Smoker 2nd Hand Smoke Exposure: Yes Recent Hopitalizations: No Alcohol Use?: No Tobacco type used: Cigarettes Have you traveled recently?: No Past Medical History CAD with recent stent placement 2020 COPD Tobacco Abuse Review of Systems ([facility]C) Constitutional: No fever; malaise, weakness EENTM: no symptoms reported; No mouth pain, No nose congestion, No nose pain Respiratory: cough, dyspnea on exertion, short of breath Cardiovascular: No chest pain; edema; No palpitations Gastrointestinal: no symptoms reported; No abdominal pain, No constipation, No diarrhea, No nausea, No vomiting Genitourinary: no symptoms reported; No dysuria, No frequency, No hematuria Musculoskeletal: no symptoms reported Skin: no symptoms reported Psychiatric/Neurological: Weakness Reviewed Test Results Reviewed Test Results Lab Laboratory Tests Test 09/16/20 20:09 09/16/20 23:40 09/17/20 00:25 09/17/20 01:05 Range/Units White Blood Count 13.4 H 4.3-11.0 10^3/uL Red Blood Count 3.79 L 4.35-5.85 10^6/uL Hemoglobin 10.8 L 13.3-17.7 G/DL Hematocrit 34 L 40-54 % Mean Corpuscular Volume 89 80-99 FL Mean Corpuscular Hemoglobin 28 25-34 PG Mean Corpuscular Hemoglobin Concent 32 32-36 G/DL Red Cell Distribution Width 14.1 10.0-14.5 % Platelet Count 604 H 130-400 10^3/uL Mean Platelet Volume 9.3 7.4-10.4 FL Immature Granulocyte % (Auto) 1 % Neutrophils (%) (Auto) 88 H 42-75 % Lymphocytes (%) (Auto) 4 L 12-44 % Monocytes (%) (Auto) 7 0-12 % Eosinophils (%) (Auto) 0 0-10 % Basophils (%) (Auto) 0 0-10 % Neutrophils # (Auto) 11.9 H 1.8-7.8 X 10^3 Lymphocytes # (Auto) 0.5 L 1.0-4.0 X 10^3 Monocytes # (Auto) 0.9 0.0-1.0 X 10^3 Eosinophils # (Auto) 0.1 0.0-0.3 10^3/uL Basophils # (Auto) 0.0 0.0-0.1 10^3/uL Immature Granulocyte # (Auto) 0.1 0.0-0.1 10^3/uL Neutrophils % (Manual) 85 % Lymphocytes % (Manual) 5 % Monocytes % (Manual) 8 % Band Neutrophils 2 % Hypochromasia 1+ Sodium Level 141 135-145 MMOL/L Potassium Level 4.2 3.6-5.0 MMOL/L Chloride Level 101 98-107 MMOL/L Carbon Dioxide Level 29 21-32 MMOL/L Anion Gap 11 5-14 MMOL/L Blood Urea Nitrogen 30 H 7-18 MG/DL Creatinine 1.16 0.60-1.30 MG/DL Estimat Glomerular Filtration Rate > 60 BUN/Creatinine Ratio 26 Glucose Level 140 H 70-105 MG/DL Lactic Acid Level 2.33 *H 2.24 *H 0.50-2.00 MMOL/L Calcium Level 9.0 8.5-10.1 MG/DL Corrected Calcium 9.6 8.5-10.1 MG/DL Total Bilirubin 0.5 0.1-1.0 MG/DL Aspartate Amino Transf (AST/SGOT) 32 5-34 U/L Alanine Aminotransferase (ALT/SGPT) 37 0-55 U/L Alkaline Phosphatase 103 40-136 U/L Troponin I 1.52 *H <0.30 NG/ML C-Reactive Protein 4.37 H <0.50 MG/DL Pro-B-Type Natriuretic Peptide 94332.0 H <75.0 PG/ML Total Protein 7.2 6.4-8.2 GM/DL Albumin 3.3 3.2-4.5 GM/DL Procalcitonin 0.05 <0.10 NG/ML Coronavirus 2019 (JOCELYNE) Negative Negative Test 09/17/20 02:40 09/17/20 06:32 Range/Units Lactic Acid Level 2.77 *H 2.00 0.50-2.00 MMOL/L Physical Exam-(CHC) Physical Exam Vital Signs VS - Last 72 Hours, by Label 09/16/20 09/16/20 09/17/20 09/17/20 19:48 22:42 00:00 00:00 Temp 35.8 36.0 Pulse 74 78 72 Resp 19 26 24 B/P (MAP) 93/54 (67) 109/56 139/58 (85) Pulse Ox 71 96 89 O2 Delivery Room Air Nasal Cannula Nasal Cannula Nasal Cannula O2 Flow Rate 2.00 4.00 4.00 09/17/20 09/17/20 09/17/20 09/17/20 02:07 05:00 08:00 08:30 Temp 35.8 36.4 36.0 Pulse 74 76 70 Resp 22 24 B/P (MAP) 108/65 (79) 142/60 (87) Pulse Ox 71 95 91 91 O2 Delivery Nasal Cannula Nasal Cannula O2 Flow Rate 4.00 4.00 4.00 FiO2 21 09/17/20 09/17/20 09/17/20 09/17/20 10:03 10:08 12:00 14:59 Temp 36.4 Pulse 74 Resp 24 B/P (MAP) 115/54 (74) Pulse Ox 99 96 98 O2 Delivery Nasal Cannula Nasal Cannula Nasal Cannula Nasal Cannula O2 Flow Rate 4.00 3.00 3.00 3.00 09/17/20 09/17/20 09/17/20 09/17/20 15:05 15:23 15:36 15:41 Temp 36.4 Pulse 80 Pulse Ox 94 94 O2 Delivery Nasal Cannula Nasal Cannula Nasal Cannula O2 Flow Rate 3.00 3.00 3.00 FiO2 32 09/17/20 16:00 Temp 36.6 Pulse 72 Resp 24 B/P (MAP) 121/62 (81) Pulse Ox 98 O2 Delivery Nasal Cannula O2 Flow Rate 3.00 Capillary Refill : Less Than 3 SecondsLess Than 3 Seconds General Appearance: mild distress, thin HEENT: PERRL/EOMI Neck: non-tender, full range of motion, supple Respiratory: no accessory muscle use, decreased breath sounds, crackles, wheezing Cardiovascular: normal peripheral pulses, regular rate, rhythm, no murmur Gastrointestinal: normal bowel sounds, non tender, soft Back: no CVA tenderness, no vertebral tenderness Extremities: normal range of motion, non-tender, no calf tenderness, pedal edema (3+ pitting edema bilaterally) 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, no motor/sensory deficits, alert, normal mood/affect, oriented x 3 Skin: normal color, warm/dry Lymphatic: no adenopathy Assessment/Plan Assessment/Plan Admission Status: Inpatient Order (span 2 midnights) Reason for Inpatient Admission: Increased oxygen requirement, needing RT services and IV antibiotics (1) Acute and chronic respiratory failure with hypoxia Status: Acute Assessment & Plan: - Start IV antibiotics to cover HCAP, Covid pending, MAT protocol, continue to titrate oxygen as tolerated, encourage ambulation, PT (2) COPD exacerbation Status: Acute (3) CAD (coronary artery disease) Status: Chronic Assessment & Plan: - Recent stent placement this month, continue ASA and Brilinta Qualifiers: Qualified Codes: I25.10 - Atherosclerotic heart disease of [place] coronary artery without angina pectoris (4) Person under investigation for COVID-19 (5) Tobacco abuse Status: Chronic Assessment & Plan: - Quit 2 weeks ago (6) DVT prophylaxis Status: Acute Assessment & Plan: - ARTIE Gómez MD Sep 17, 2020 18:32
[2020-09-17] MEDS: ACETAMINOPHEN 500 MG TAB (TYLENOL) PO PRN (19:01)
[2020-09-17] MEDS: meTOprolol TARTRATE 25 MG (LOPRESSOR) TABLET PO SCH (20:13)
[2020-09-17] MEDS: TICAGRELOR 90 MG TABLET (BRILINTA) PO SCH (20:14)
[2020-09-17] MEDS ORDERED: RT-ALBUTEROL INHALER HFA (VENTOLIN HFA) 18 GM IH PRN (21:00)
[2020-09-18] VITALS (7 sets, daily range): BP systolic 101–114; BP diastolic 55–78
[2020-09-18] MEDS: RT-ALBUTEROL INHALER HFA (VENTOLIN HFA) 18 GM IH SCH ×6 (02:21→22:39)
[2020-09-18] MEDS: IPRATROPIUM INHALER (ATROVENT) 12.9 GM INH SCH ×6 (02:24→22:39)
[2020-09-18 05:55] LABS: BASOPHILS % (AUTO) 0 % (0-10); EOSINOPHILS % (AUTO) 0 % (0-10); HEMATOCRIT 33 % (40-54); HEMOGLOBIN 10.1 g/dL (13.3-17.7); LYMPHOCYTES # (AUTO) 0.6 10^3/uL (1.0-4.0); LYMPHOCYTES % (AUTO) 3 % (12-44); MEAN CORPUSCULAR HEMOGLOBIN 28 pg (25-34); MEAN CORPUSCULAR HGB CONC 31 g/dL (32-36); MEAN CORPUSCULAR VOLUME 90 fL (80-99); MEAN PLATELET VOLUME 9.7 fL (9.0-12.2); MONOCYTES # (AUTO) 1.4 10^3/uL (0.0-1.0); MONOCYTES % (AUTO) 7 % (0-12); NEUTROPHILS # (AUTO) 16.8 10^3/uL (1.8-7.8); NEUTROPHILS % (AUTO) 89 % (42-75); PLATELET COUNT 566 10^3/uL (130-400); WHITE BLOOD COUNT 18.9 10^3/uL (4.3-11.0)
[2020-09-18 06:05] LABS: ALBUMIN 3.3 GM/DL (3.2-4.5); POTASSIUM 4.8 MMOL/L (3.6-5.0)
[2020-09-18 06:06] LABS: CALCIUM 8.5 MG/DL (8.5-10.1)
[2020-09-18 06:08] LABS: TOTAL PROTEIN 7.1 GM/DL (6.4-8.2)
[2020-09-18 06:09] LABS: BILIRUBIN,TOTAL 0.5 MG/DL (0.1-1.0)
[2020-09-18 06:11] LABS: CREATININE SERUM 1.21 MG/DL (0.60-1.30)
[2020-09-18 06:43] LABS: LYMPHOCYTES % (MANUAL) 3 %; MONOCYTES % (MANUAL) 4 %; NEUTROPHILS % (MANUAL) 93 %
[2020-09-18] MEDS: TICAGRELOR 90 MG TABLET (BRILINTA) PO SCH ×2 (09:36→20:25)
[2020-09-18] MEDS: cefTRIAXone 1,000 MG/SWFI 10 ML IV PUSH IV SCH ×2 (09:36)
[2020-09-18] MEDS: ASPIRIN 81 MG CHEW (CHILDREN'S ASA) PO SCH (09:36)
[2020-09-18] MEDS: AZITHROMYCIN 250 MG TAB (ZITHROMAX) PO SCH (09:36)
[2020-09-18] MEDS: meTOprolol TARTRATE 25 MG (LOPRESSOR) TABLET PO SCH ×2 (09:36→20:29)
[2020-09-18] MEDS ORDERED: MELA5TAB14 PO (09:48)
[2020-09-18] MEDS ORDERED: FLUT1BLS13 INH (09:48)
[2020-09-18] MEDS ORDERED: CEFD300C3 PO (09:48)
[2020-09-18] MEDS ORDERED: FLUC150T2 PO (09:48)
[2020-09-18] MEDS ORDERED: FUROSEMIDE 40 MG/4 ML INJ (LASIX) IVP ONE (15:30)
--- NOTE | 2020-09-18 15:34 | Progress Note ---
Subjective Subjective/Events-last exam Patient states that he feels better this AM but is still short of breath. He has not been up out of bed much since arriving. Has low appetite but drank an ensure this AM. Review of Systems Pulmonary: Dyspnea, Cough Cardiovascular: No: Chest Pain, Palpitations Gastrointestinal: No: Nausea, Vomiting, Abdominal Pain, Diarrhea, Constipation Genitourinary: No Dysuria, No Frequency, No Incontinence Neurological: Weakness, Incoordination Focused Exam Lactate Level 09/17/20 00:25: Lactic Acid Level 2.24*H 09/17/20 02:40: Lactic Acid Level 2.77*H 09/17/20 06:32: Lactic Acid Level 2.00 Objective Exam Last Set of Vital Signs Vital Signs Date Time Temp Pulse Resp B/P (MAP) Pulse Ox O2 Delivery O2 Flow Rate FiO2 09/18/20 13:49 Vapotherm 40.00 80 09/18/20 13:48 92 09/18/20 11:19 35.6 77 24 103/62 (76) Capillary Refill : Less Than 3 SecondsLess Than 3 Seconds I&O Intake and Output 09/18/20 00:00 Intake Total 2417 ml Output Total 550 ml Balance 1867 ml Intake Oral 1220 ml IV Total 1197 ml Output Urine Total 550 ml # Bowel Movements 2 General: Alert, Oriented X3, Mild Distress (with any activity) Lungs: Other (diminished breath sounds, conversational dsypnea, diffuse wheezing in all lung day) Heart: Regular Rate, No Murmurs Abdomen: Normal Bowel Sounds, Soft, No Tenderness, No Masses Extremities: Other (2+ pitting edema bilaterally) Skin: No Rashes, No Breakdown Results/Procedures Lab Laboratory Tests 09/18/20 05:47: White Blood Count 18.9H, Red Blood Count 3.63L, Hemoglobin 10.1L, Hematocrit 33L , Mean Corpuscular Volume 90, Mean Corpuscular Hemoglobin 28, Mean Corpuscular Hemoglobin Concent 31L, Red Cell Distribution Width 14.3, Platelet Count 566H, Mean Platelet Volume 9.7, Immature Granulocyte % (Auto) 1, Neutrophils (%) (Auto) 89H, Lymphocytes (%) (Auto) 3L, Monocytes (%) (Auto) 7, Eosinophils (%) (Auto) 0, Basophils (%) (Auto) 0, Neutrophils # (Auto) 16.8H, Lymphocytes # (Auto) 0.6L, Monocytes # (Auto) 1.4H, Eosinophils # (Auto) 0.0, Basophils # (Auto) 0.0, Immature Granulocyte # (Auto) 0.1, Neutrophils % (Manual) 93, Lymphocytes % (Manual) 3, Monocytes % (Manual) 4, Sodium Level 140, Potassium Level 4.8, Chloride Level 101, Carbon Dioxide Level 26, Anion Gap 13, Blood Urea Nitrogen 41H, Creatinine 1.21, Estimat Glomerular Filtration Rate 59, BUN/Creatinine Ratio 34, Glucose Level 120H, Calcium Level 8.5, Corrected Calcium 9.1, Total Bilirubin 0.5, Aspartate Amino Transf (AST/SGOT) 319H, Alanine Aminotransferase (ALT/SGPT) 164H, Alkaline Phosphatase 82, Total Protein 7.1, Albumin 3.3 Microbiology 09/16/20 Blood Culture - Preliminary, Resulted No growth Assessment/Plan Assessment/Plan (1) Acute and chronic respiratory failure with hypoxia Status: Acute Assessment & Plan: - Start IV antibiotics to cover HCAP, Covid pending, MAT protocol, continue to titrate oxygen as tolerated, encourage ambulation, PT 09/18: Covid pending, Continue IV antibiotics, patient started on Vapotherm today (2) COPD exacerbation Status: Acute (3) CAD (coronary artery disease) Status: Chronic Assessment & Plan: - Recent stent placement this month, continue ASA and Brilinta Qualifiers: Qualified Codes: I25.10 - Atherosclerotic heart disease of [place] coronary artery without angina pectoris (4) Elevated LFTs Status: Acute Assessment & Plan: 09/18: New today, will order Liver US (5) Person under investigation for COVID-19 (6) Tobacco abuse Status: Chronic Assessment & Plan: - Quit 2 weeks ago (7) DVT prophylaxis Status: Acute Assessment & Plan: - ARTIE Gómez MD Sep 18, 2020 15:33
--- NOTE | 2020-09-18 16:48 | Physician Query Clarification ---
"Physician Query-General Query to Physician: The medical record reflects the following clinical scenario: History/Risk factors: Recent [place], Hospitalization09/06/20 to 09/10/20 Clinical Findings: RR 19 to 26, 02 Sat 71% on RA, SOB, Temp 35.8, WBC 13.4 Xray: infiltrates...concerning for pneumonia Treatment: IV, Levofloxacin, Supplemental 02, Breathing Rx Question: Do you agree with the impression of Pneumonia per Tony Collado? If you agree, please document in Progress Notes or Discharge Summary. 1. Yes; will document Pneumonia with Acute on Chronic respiratory failure with hypoxia Present on admission in the Progress Notes 2. No; will continue to document Acute on Chronic respiratory failure with hypoxia in the Progress Notes 3. Other; will document explanation of clinical findings 4. Clinically undetermined; no explanation for clinical findings Please remember a lack of response to the above will prompt a phone page by CDI/coding staff. In responding to this query, please exercise your independent professional judgment. The purpose of this communication is to more accurately reflect the complexity of your patients condition. The fact that a question is asked does not imply that any particular answer is desired or expected. Thank you for timely response to this clarification. Carla Marks, MSN, RN RN Specialist-Clinical Doc Improvement CD -Health Info Mgmt Operations [address] [facility] t: [phone] | f: [phone] If you are unable to reach me at my extension, I may be working from home. Please contact me at [phone] PHYSICIAN RESPONSE: Based on the clinical findings in the record, please respond to the query above on this document as an addendum. Physician Response: Physician Response 1 If you have questions please contact: Journeyman Press Operator: Ext: Thank you for your time and cooperation. Clinical Housekeeper Nanny/Journeyman Press Operator This is a permanent part of the medical record CARLA MARKS Sep 18, 2020 16:48 ARTIE TRAN MD Sep 24, 2020 13:23"
--- NOTE | 2020-09-18 17:03 | Physician Query Clarification ---
"Physician Query-General Query to Physician: The medical record reflects the following clinical scenario: History/Risk factors: CAD, HTN, Clinical Findings: Admitted 09/06/20 to 09/10/20 for IN, Troponin peaked at 104.761 on 09/08/20 Treatment: troponin monitoring, ASA, Brilinta Question: What condition best reflects the above clinical scenario? Please document response in the Progress notes or Discharge Summary. 1. CAD with NSTEMI within 4 weeks 2. CAD (as currently documented) 3. Other , with explanation of the clinical findings 4. Clinically undetermined, no explanation for the clinical findings Please remember a lack of response to the above will prompt a phone page by CDI/coding staff In responding to this query, please exercise your independent professional judgment. The purpose of this communication is to more accurately reflect the complexity of your patients condition. The fact that a question is asked does not imply that any particular answer is desired or expected. Thank you for timely response to this clarification. Carla Marks, MSN, RN RN Specialist-Clinical Doc Improvement CD -Health Info Mgmt Operations [address] [facility] t: [phone] | f: [phone] If you are unable to reach me at my extension, I may be working from home. Please contact me at [phone] PHYSICIAN RESPONSE: Based on the clinical findings in the record, please respond to the query above on this document as an addendum. Physician Response: Physician Response 1 If you have questions please contact: Front Office Developer: Ext: Thank you for your time and cooperation. Clinical Hydroponics Worker/Front Office Developer This is a permanent part of the medical record CARLA MARKS Sep 18, 2020 17:03 ARTIE TRAN MD Sep 24, 2020 13:27"
[2020-09-18] MEDS ORDERED: MELATONIN 3 MG TABLET PO PRN (21:00)
[2020-09-18] MEDS: ACETAMINOPHEN 500 MG TAB (TYLENOL) PO PRN (23:34)
[2020-09-19] VITALS (7 sets, daily range): BP systolic 101–143; BP diastolic 53–72
[2020-09-19] MEDS: RT-ALBUTEROL INHALER HFA (VENTOLIN HFA) 18 GM IH SCH ×6 (01:42→22:58)
[2020-09-19] MEDS: IPRATROPIUM INHALER (ATROVENT) 12.9 GM INH SCH ×6 (01:42→22:59)
[2020-09-19 05:43] LABS: BASOPHILS % (AUTO) 0 % (0-10); EOSINOPHILS % (AUTO) 0 % (0-10); HEMATOCRIT 33 % (40-54); HEMOGLOBIN 10.2 g/dL (13.3-17.7); LYMPHOCYTES # (AUTO) 0.6 10^3/uL (1.0-4.0); LYMPHOCYTES % (AUTO) 4 % (12-44); MEAN CORPUSCULAR HEMOGLOBIN 28 pg (25-34); MEAN CORPUSCULAR HGB CONC 31 g/dL (32-36); MEAN CORPUSCULAR VOLUME 90 fL (80-99); MEAN PLATELET VOLUME 9.8 fL (9.0-12.2); MONOCYTES # (AUTO) 1.3 10^3/uL (0.0-1.0); MONOCYTES % (AUTO) 9 % (0-12); NEUTROPHILS # (AUTO) 12.9 10^3/uL (1.8-7.8); NEUTROPHILS % (AUTO) 87 % (42-75); PLATELET COUNT 440 10^3/uL (130-400); WHITE BLOOD COUNT 14.9 10^3/uL (4.3-11.0)
[2020-09-19 05:54] LABS: ALBUMIN 3.3 GM/DL (3.2-4.5)
[2020-09-19 05:56] LABS: CALCIUM 8.6 MG/DL (8.5-10.1)
[2020-09-19 05:57] LABS: TOTAL PROTEIN 6.7 GM/DL (6.4-8.2)
[2020-09-19 05:59] LABS: BILIRUBIN,TOTAL 0.5 MG/DL (0.1-1.0)
[2020-09-19 06:01] LABS: CREATININE SERUM 1.27 MG/DL (0.60-1.30)
--- NOTE | 2020-09-19 07:17 | Diagnostic Imaging Report ---
INDICATION: Hypoxemia. Portable chest 2:35 AM FINDINGS: There are postoperative changes from median sternotomy. There are infiltrates present in the right upper and lower lungs with possible right pleural effusion. There appears to be pulmonary vascular congestion. There are some nodular opacities in left perihilar region. IMPRESSION: Improving infiltrate left lung. There is some residual pulmonary vascular congestion. Severe infiltrate right lung has not significantly changed from 09/16/2020. Dictated by: Dictated on workstation # [id number]
[2020-09-19] MEDS: meTOprolol TARTRATE 25 MG (LOPRESSOR) TABLET PO SCH ×2 (09:10→21:12)
[2020-09-19] MEDS: TICAGRELOR 90 MG TABLET (BRILINTA) PO SCH ×2 (09:10→21:12)
[2020-09-19] MEDS: AZITHROMYCIN 250 MG TAB (ZITHROMAX) PO SCH (09:10)
[2020-09-19] MEDS: cefTRIAXone 1,000 MG/SWFI 10 ML IV PUSH IV SCH ×2 (09:10)
[2020-09-19] MEDS: ASPIRIN 81 MG CHEW (CHILDREN'S ASA) PO SCH (09:21)
--- NOTE | 2020-09-19 11:00 | Diagnostic Imaging Report ---
PROCEDURE: US Abdomen, limited. TECHNIQUE: Multiple realtime grayscale images were obtained over the abdomen in various projections. INDICATION: Elevated liver enzymes There is some increased echogenicity in the liver adjacent falciform ligament. This could be from focal fatty infiltration or possibly hemangioma formation. Liver otherwise has normal echogenicity. Hepatic veins are patent but mildly distended suggesting elevated central venous pressures. The portal vein is patent with hepatopetal flow. Gallbladder is clear with no stones or wall thickening. Common bile duct was obscured by bowel gas. The pancreas is obscured by bowel gas. The abdominal aorta measures up to 3.3 cm in diameter with some atherosclerotic plaque seen. IVC was not seen. Right kidney measures 10.3 cm length. It appeared normal. There is no ascites. There is a large right pleural effusion. IMPRESSION: Ectatic abdominal aorta. Area of increased echogenicity in the liver adjacent to falciform ligament could be focal fatty infiltration versus hemangioma. There is a large right pleural effusion. The hepatic veins are distended suggesting elevated central venous pressures. Dictated by: Dictated on workstation # [id number]
--- NOTE | 2020-09-19 12:52 | Progress Note ---
Subjective Subjective/Events-last exam Patient has made minimal change. States that he feels short of breath but some better this AM. Tolerating PO diet when he eats. Has not got up out of bed. Review of Systems Pulmonary: Dyspnea, Cough Cardiovascular: No: Chest Pain, Palpitations Gastrointestinal: No: Nausea, Vomiting, Abdominal Pain, Diarrhea, Constipation Neurological: Weakness, Incoordination Focused Exam Lactate Level 09/17/20 00:25: Lactic Acid Level 2.24*H 09/17/20 02:40: Lactic Acid Level 2.77*H 09/17/20 06:32: Lactic Acid Level 2.00 Objective Exam Last Set of Vital Signs Vital Signs Date Time Temp Pulse Resp B/P (MAP) Pulse Ox O2 Delivery O2 Flow Rate FiO2 09/19/20 11:49 35.5 84 18 116/62 (80) 97 Vapotherm 20.00 60.00 09/19/20 10:51 60 Capillary Refill : Less Than 3 SecondsLess Than 3 Seconds I&O Intake and Output 09/19/20 00:00 Intake Total 1947 ml Output Total 1575 ml Balance 372 ml Intake Oral 1937 ml IV Total 10 ml Output Urine Total 1575 ml # Bowel Movements 1 General: Alert, Oriented X3, No Acute Distress Lungs: Other (diminished breath sound and conversational dsypnea, + diffuse wheezing throughout lung day) Heart: Regular Rate, No Murmurs Abdomen: Normal Bowel Sounds, Soft, No Tenderness, No Masses Extremities: No Tenderness/Swelling, Other (2 pitting edema bilaterally) Neuro: Normal Speech, Sensation Intact Results/Procedures Lab Laboratory Tests 09/19/20 05:37: White Blood Count 14.9H, Red Blood Count 3.66L, Hemoglobin 10.2L, Hematocrit 33L , Mean Corpuscular Volume 90, Mean Corpuscular Hemoglobin 28, Mean Corpuscular Hemoglobin Concent 31L, Red Cell Distribution Width 14.3, Platelet Count 440H, Mean Platelet Volume 9.8, Immature Granulocyte % (Auto) 1, Neutrophils (%) (Auto) 87H, Lymphocytes (%) (Auto) 4L, Monocytes (%) (Auto) 9, Eosinophils (%) ( Auto) 0, Basophils (%) (Auto) 0, Neutrophils # (Auto) 12.9H, Lymphocytes # (Auto) 0.6L, Monocytes # (Auto) 1.3H, Eosinophils # (Auto) 0.0, Basophils # (Auto) 0.0, Immature Granulocyte # (Auto) 0.1, Sodium Level 140, Potassium Level 5.0, Chloride Level 98, Carbon Dioxide Level 30, Anion Gap 12, Blood Urea Nitr ogen 54H, Creatinine 1.27, Estimat Glomerular Filtration Rate 56, BUN/Creatinine Ratio 43, Glucose Level 111H, Calcium Level 8.6, Corrected Calcium 9.2, Total Bilirubin 0.5, Aspartate Amino Transf (AST/SGOT) 475H, Alanine Aminotransferase (ALT/SGPT) 417H, Alkaline Phosphatase 105, Total Protein 6.7, Albumin 3.3 Microbiology 09/16/20 Blood Culture - Preliminary, Resulted No growth Assessment/Plan Assessment/Plan (1) Acute and chronic respiratory failure with hypoxia Status: Acute Assessment & Plan: - Start IV antibiotics to cover HCAP, Covid pending, MAT protocol, continue to titrate oxygen as tolerated, encourage ambulation, PT 09/18: Covid pending, Continue IV antibiotics, patient started on Vapotherm today 09/19: Continue to titrate as tolerated, discussed the importance of getting up to chair and OOB (2) COPD exacerbation Status: Acute (3) CAD (coronary artery disease) Status: Chronic Assessment & Plan: - Recent stent placement this month, continue ASA and Brilinta Qualifiers: Qualified Codes: I25.10 - Atherosclerotic heart disease of [place] coronary artery without angina pectoris (4) Elevated LFTs Status: Acute Assessment & Plan: 09/18: New today, will order Liver US 09/19: Liver US does not reveal anything acute, will get acute hepatitis panel (5) Person under investigation for COVID-19 (6) Tobacco abuse Status: Chronic Assessment & Plan: - Quit 2 weeks ago (7) DVT prophylaxis Status: Acute Assessment & Plan: - ARTIE Gómez MD Sep 19, 2020 12:52
[2020-09-19] MEDS ORDERED: FUROSEMIDE 40 MG/4 ML INJ (LASIX) IVP ONE (13:00)
[2020-09-19 21:28] LABS: HEPATITIS C ANTIBODY C Non-Reactive (Non-Reactive)
[2020-09-20] MEDS: IPRATROPIUM INHALER (ATROVENT) 12.9 GM INH SCH (01:38)
[2020-09-20] MEDS: RT-ALBUTEROL INHALER HFA (VENTOLIN HFA) 18 GM IH SCH (01:38)
[2020-09-20 04:50] VITALS: BP 103/56
--- NOTE | 2020-09-20 06:28 | Inpatient Code Blue ---
General Chief Complaint: Respiratory Problems Stated Complaint: PNEUMONIA,HYPOXIA Nursing Triage Note: Patient was brought in via EMS for complaints of shortness of breath and feeling generally ill for the last 3 days. Patient states that he had an IN a week ago and had a cardiac stent placed. EMS started a 22 in the right hand and gave a breathing treatment. Patient states that the breathing treatment helped. Patient did have reports of chest pain with EMS but it had resolved prior to coming into the ER. Source: RN/MD, old records Exam Limitations: clinical condition History of Present Illness Date Seen by Provider: Sep 20, 2020 Time Seen by Provider: 05:55 Initial Comments This provider was summoned to the room for a CODE BLUE. Staff report they found the patient on the floor face down. They started coding him as he had no pulse. When they got him to the bed and put paddles on him he was in asystole. No shocks were given. Patient was admitted originally for non-STEMI and had a stent placed but was also having increasing shortness of breath and cough and found to be in respiratory distress and having pneumonia. Nursing reports he was on Vapotherm but was not compliant with this. Patient had 2 - Covid swabs. Allergies and Home Medications Allergies Coded Allergies: warfarin (Verified Allergy, Unknown, 08/16/20) midazolam (Verified Adverse Reaction, Severe, 08/18/20) PT RECEIVED VERSED FOR HEART CATH, THEY HAD TO REVERSE MEDICATION DUE TO BEHAVIOR clopidogrel (Verified Adverse Reaction, Unknown, ringing in ears, 08/17/20) Home Medications Albuterol Sulfate 1 Puff Puff, 2 PUFF IH Q4H PRN for SHORTNESS OF BREATH, (Reported) Aspirin 81 Mg Tab.chew, 81 MG PO DAILY, (Reported) Cefdinir 300 Mg Capsule, 300 MG PO BID, (Reported) FILLED 09-16-2020 #20/10 DAY SUPPLY Fluconazole 150 Mg Tablet, 150 MG PO Q72H, (Reported) FILLED 09-16-2020 #3/9 DAY SUPPLY Fluticasone Propion/Salmeterol 1 Each Blst.w.dev, 1 PUFF INH BID, (Reported) Melatonin 5 Mg Tablet, 5 MG PO HS, (Reported) Metoprolol Tartrate 25 Mg Tablet, 25 MG PO BID, (Reported) Quinter 3 Polyunsat Fatty Acids 1,000 Mg Cap, 1,000 MG PO TID, (Reported) Omeprazole 40 Mg Capsule.dr, 40 MG PO BID, (Reported) Sucralfate 1 Gm Tablet, 1 GM PO QID, (Reported) Ticagrelor 90 Mg Tablet, 90 MG PO BID, (Reported) Patient Home Medication List Home Medication List Reviewed: Yes Physical Exam Vital Signs Vital Signs - First Documented 09/16/20 09/16/20 09/17/20 19:48 22:42 02:07 Temp 35.8 Pulse 74 Resp 19 B/P (MAP) 93/54 (67) Pulse Ox 71 O2 Delivery Room Air O2 Flow Rate 2.00 FiO2 21 Capillary Refill : Less Than 3 SecondsLess Than 3 Seconds Height, Weight, BMI Height: 5'10.00" Weight: 180lbs. 0.0oz. [id number]; 25.17 BMI Method: General Appearance: severe distress, other (Chronically ill) Eyes: Bilateral Eye Other (Fixed 3 mm) Respiratory: respiratory distress, other (Cardiopulmonary arrest) Cardiovascular: other (Cardiopulmonary arrest with asystole and no palpable pulses receiving CPR, previous sternotomy) Gastrointestinal: soft; No mass Neurologic/Psychiatric: other (GCS 3) Skin: damp, pallor Procedures/Interventions Reason for Intubation: Cardiopulmonary arrest Date of ETT Placement: Sep 20, 2020 Time of ETT Placement: 06:00 Intubation Method: orotracheal Tube Size: 7.5 Positive End Tide CO2: Yes Breath Sounds after Intubation: bilateral-equal Intubation Complications: no complications, oral-unsuccessful attempt (2) Post Intubation Xray: No CPR: See nursing notes. Patient was in asystole on initiation of CPR. Had one episode of PEA and after that asystole on all pulse checks. A liter of saline was started wide open. A second IV site was initiated. 4 rounds of epinephrine were given. Very good CPR was being performed and an airway was secured early on giving good ventilation and oxygenation. Reviewed the patient's history with nursing staff and he was with very poor plasma to start with. Prognosis was incredibly grim. Nursing was attempting to get a hold of family. We gave an amp of bicarb. For 21 minutes we were unable to get anything more than asystole so we decided to cease resuscitative efforts at 0616. Progress/Results/Core Measures Results/Orders Lab Results Laboratory Tests Test 09/16/20 20:09 09/16/20 23:40 09/17/20 00:25 09/17/20 01:05 Range/Units White Blood Count 13.4 H 4.3-11.0 10^3/uL Red Blood Count 3.79 L 4.35-5.85 10^6/uL Hemoglobin 10.8 L 13.3-17.7 G/DL Hematocrit 34 L 40-54 % Mean Corpuscular Volume 89 80-99 FL Mean Corpuscular Hemoglobin 28 25-34 PG Mean Corpuscular Hemoglobin Concent 32 32-36 G/DL Red Cell Distribution Width 14.1 10.0-14.5 % Platelet Count 604 H 130-400 10^3/uL Mean Platelet Volume 9.3 7.4-10.4 FL Immature Granulocyte % (Auto) 1 % Neutrophils (%) (Auto) 88 H 42-75 % Lymphocytes (%) (Auto) 4 L 12-44 % Monocytes (%) (Auto) 7 0-12 % Eosinophils (%) (Auto) 0 0-10 % Basophils (%) (Auto) 0 0-10 % Neutrophils # (Auto) 11.9 H 1.8-7.8 X 10^3 Lymphocytes # (Auto) 0.5 L 1.0-4.0 X 10^3 Monocytes # (Auto) 0.9 0.0-1.0 X 10^3 Eosinophils # (Auto) 0.1 0.0-0.3 10^3/uL Basophils # (Auto) 0.0 0.0-0.1 10^3/uL Immature Granulocyte # (Auto) 0.1 0.0-0.1 10^3/uL Neutrophils % (Manual) 85 % Lymphocytes % (Manual) 5 % Monocytes % (Manual) 8 % Band Neutrophils 2 % Hypochromasia 1+ Sodium Level 141 135-145 MMOL/L Potassium Level 4.2 3.6-5.0 MMOL/L Chloride Level 101 98-107 MMOL/L Carbon Dioxide Level 29 21-32 MMOL/L Anion Gap 11 5-14 MMOL/L Blood Urea Nitrogen 30 H 7-18 MG/DL Creatinine 1.16 0.60-1.30 MG/DL Estimat Glomerular Filtration Rate > 60 BUN/Creatinine Ratio 26 Glucose Level 140 H 70-105 MG/DL Lactic Acid Level 2.33 *H 2.24 *H 0.50-2.00 MMOL/L Calcium Level 9.0 8.5-10.1 MG/DL Corrected Calcium 9.6 8.5-10.1 MG/DL Total Bilirubin 0.5 0.1-1.0 MG/DL Aspartate Amino Transf (AST/SGOT) 32 5-34 U/L Alanine Aminotransferase (ALT/SGPT) 37 0-55 U/L Alkaline Phosphatase 103 40-136 U/L Troponin I 1.52 *H <0.30 NG/ML C-Reactive Protein 4.37 H <0.50 MG/DL Pro-B-Type Natriuretic Peptide 39810.0 H <75.0 PG/ML Total Protein 7.2 6.4-8.2 GM/DL Albumin 3.3 3.2-4.5 GM/DL Procalcitonin 0.05 <0.10 NG/ML Coronavirus 2019 (JOCELYNE) Negative Negative Coronavirus (COVID-19)(PCR) Negative Negative Test 09/17/20 02:40 09/17/20 06:32 09/18/20 05:47 09/19/20 05:37 Range/Units Lactic Acid Level 2.77 *H 2.00 0.50-2.00 MMOL/L White Blood Count 18.9 H 14.9 H 4.3-11.0 10^3/uL Red Blood Count 3.63 L 3.66 L 4.30-5.52 10^6/uL Hemoglobin 10.1 L 10.2 L 13.3-17.7 g/dL Hematocrit 33 L 33 L 40-54 % Mean Corpuscular Volume 90 90 80-99 fL Mean Corpuscular Hemoglobin 28 28 25-34 pg Mean Corpuscular Hemoglobin Concent 31 L 31 L 32-36 g/dL Red Cell Distribution Width 14.3 14.3 10.0-14.5 % Platelet Count 566 H 440 H 130-400 10^3/uL Mean Platelet Volume 9.7 9.8 9.0-12.2 fL Immature Granulocyte % (Auto) 1 1 % Neutrophils (%) (Auto) 89 H 87 H 42-75 % Lymphocytes (%) (Auto) 3 L 4 L 12-44 % Monocytes (%) (Auto) 7 9 0-12 % Eosinophils (%) (Auto) 0 0 0-10 % Basophils (%) (Auto) 0 0 0-10 % Neutrophils # (Auto) 16.8 H 12.9 H 1.8-7.8 10^3/uL Lymphocytes # (Auto) 0.6 L 0.6 L 1.0-4.0 10^3/uL Monocytes # (Auto) 1.4 H 1.3 H 0.0-1.0 10^3/uL Eosinophils # (Auto) 0.0 0.0 0.0-0.3 10^3/uL Basophils # (Auto) 0.0 0.0 0.0-0.1 10^3/uL Immature Granulocyte # (Auto) 0.1 0.1 0.0-0.1 10^3/uL Neutrophils % (Manual) 93 % Lymphocytes % (Manual) 3 % Monocytes % (Manual) 4 % Sodium Level 140 140 135-145 MMOL/L Potassium Level 4.8 5.0 3.6-5.0 MMOL/L Chloride Level 101 98 98-107 MMOL/L Carbon Dioxide Level 26 30 21-32 MMOL/L Anion Gap 13 12 5-14 MMOL/L Blood Urea Nitrogen 41 H 54 H 7-18 MG/DL Creatinine 1.21 1.27 0.60-1.30 MG/DL Estimat Glomerular Filtration Rate 59 56 BUN/Creatinine Ratio 34 43 Glucose Level 120 H 111 H 70-105 MG/DL Calcium Level 8.5 8.6 8.5-10.1 MG/DL Corrected Calcium 9.1 9.2 8.5-10.1 MG/DL Total Bilirubin 0.5 0.5 0.1-1.0 MG/DL Aspartate Amino Transf (AST/SGOT) 319 H 475 H 5-34 U/L Alanine Aminotransferase (ALT/SGPT) 164 H 417 H 0-55 U/L Alkaline Phosphatase 82 105 40-136 U/L Total Protein 7.1 6.7 6.4-8.2 GM/DL Albumin 3.3 3.3 3.2-4.5 GM/DL Hepatitis A IgM Antibody Non-Reactive Non-Reactive Hepatitis B Surface Antigen Non-Reactive Non-Reactive Hepatitis B Core IgM Antibody Non-Reactive Non-Reactive Hepatitis C Antibody Non-Reactive Non-Reactive Micro Results Microbiology 09/16/20 Blood Culture - Preliminary, Resulted No growth 09/16/20 Blood Culture - Preliminary, Resulted No growth Vital Signs/I&O 09/16/20 09/16/20 09/17/20 09/17/20 19:48 22:42 00:00 00:00 Temp 35.8 36.0 Pulse 74 78 72 Resp 19 26 24 B/P (MAP) 93/54 (67) 109/56 139/58 (85) Pulse Ox 71 96 89 O2 Delivery Room Air Nasal Cannula Nasal Cannula Nasal Cannula O2 Flow Rate 2.00 4.00 4.00 09/17/20 09/17/20 09/17/20 09/17/20 02:07 05:00 08:00 08:30 Temp 35.8 36.4 36.0 Pulse 74 76 70 Resp 22 24 B/P (MAP) 108/65 (79) 142/60 (87) Pulse Ox 71 95 91 91 O2 Delivery Nasal Cannula Nasal Cannula O2 Flow Rate 4.00 4.00 4.00 FiO2 21 09/17/20 09/17/20 09/17/20 09/17/20 10:03 10:08 12:00 14:59 Temp 36.4 Pulse 74 Resp 24 B/P (MAP) 115/54 (74) Pulse Ox 99 96 98 O2 Delivery Nasal Cannula Nasal Cannula Nasal Cannula Nasal Cannula O2 Flow Rate 4.00 3.00 3.00 3.00 09/17/20 09/17/20 09/17/20 09/17/20 15:05 15:23 15:36 15:41 Temp 36.4 Pulse 80 Pulse Ox 94 94 O2 Delivery Nasal Cannula Nasal Cannula Nasal Cannula O2 Flow Rate 3.00 3.00 3.00 FiO2 32 09/17/20 09/17/20 09/17/20 09/17/20 16:00 18:29 18:33 20:10 Temp 36.6 Pulse 72 Resp 24 B/P (MAP) 121/62 (81) Pulse Ox 98 90 O2 Delivery Nasal Cannula Nasal Cannula Nasal Cannula High Flow N/C O2 Flow Rate 3.00 2.00 3.00 3.00 09/17/20 09/17/20 09/17/20 09/18/20 20:15 21:50 21:52 00:00 Temp 36.2 36.1 Pulse 76 76 Resp 18 18 B/P (MAP) 101/60 (74) 108/67 (81) Pulse Ox 91 94 94 98 O2 Delivery High Flow N/C Nasal Cannula Nasal Cannula High Flow N/C O2 Flow Rate 3.00 3.00 3.00 3.00 09/18/20 09/18/20 09/18/20 09/18/20 02:21 02:24 04:00 07:00 Temp 35.6 Pulse 91 Resp 18 B/P (MAP) 110/67 (81) Pulse Ox 91 91 95 92 O2 Delivery Nasal Cannula Nasal Cannula High Flow N/C Nasal Cannula O2 Flow Rate 3.00 3.00 3.00 3.50 09/18/20 09/18/20 09/18/20 09/18/20 07:00 07:53 08:00 09:45 Temp 35.6 Pulse 81 Resp 18 B/P (MAP) 101/62 (75) Pulse Ox 92 92 94 92 O2 Delivery Nasal Cannula High Flow N/C High Flow N/C Nasal Cannula O2 Flow Rate 3.50 3.50 3.00 3.50 09/18/20 09/18/20 09/18/20 09/18/20 09:45 11:19 13:48 13:49 Temp 35.6 Pulse 77 Resp 24 B/P (MAP) 103/62 (76) Pulse Ox 95 97 92 O2 Delivery Nasal Cannula High Flow N/C Vapotherm Vapotherm O2 Flow Rate 3.50 3.50 40.00 FiO2 80 09/18/20 09/18/20 09/18/20 09/18/20 16:00 17:42 20:10 20:25 Temp 36.1 36.1 36.7 Pulse 86 86 73 Resp 20 20 18 B/P (MAP) 113/55 (74) 113/55 (74) 114/78 (90) Pulse Ox 86 86 97 O2 Delivery Vapotherm Vapotherm High Flow N/C Vapotherm O2 Flow Rate 32.00 32.00 3.50 20.00 FiO2 60 09/18/20 09/18/20 09/19/20 09/19/20 22:40 22:43 00:00 01:42 Temp 35.0 Pulse 82 Resp 19 B/P (MAP) 143/53 (83) Pulse Ox 94 91 92 O2 Delivery Vapotherm Vapotherm Vapotherm Vapotherm O2 Flow Rate 20.00 20.00 20.00 60.00 FiO2 60 70 2/19/21 09/19/20 09/19/20 09/19/20 01:43 04:09 06:45 08:00 Temp 35.3 Pulse 65 Resp 19 B/P (MAP) 101/57 (72) Pulse Ox 92 96 99 94 O2 Delivery Vapotherm Vapotherm Vapotherm High Flow N/C O2 Flow Rate 20.00 20.00 3.00 70.00 FiO2 60 09/19/20 09/19/20 09/19/20 09/19/20 08:00 10:51 11:49 14:47 Temp 35.5 35.5 Pulse 81 84 Resp 22 18 B/P (MAP) 113/70 (84) 116/62 (80) Pulse Ox 97 95 97 92 O2 Delivery Vapotherm Vapotherm Vapotherm Vapotherm O2 Flow Rate 20.00 20.00 20.00 20.00 60.00 60.00 FiO2 60 60 09/19/20 09/19/20 09/19/20 09/19/20 16:00 19:02 19:57 20:00 Temp 35.7 35.4 Pulse 65 79 Resp 16 20 B/P (MAP) 111/60 (77) 105/72 (83) Pulse Ox 95 96 95 O2 Delivery Vapotherm Vapotherm Vapotherm Vapotherm O2 Flow Rate 20.00 20.00 20.00 20.00 60.00 60.00 FiO2 60 60 09/19/20 09/19/20 09/20/20 09/20/20 22:59 23:52 01:38 04:50 Temp 35.2 35.4 Pulse 89 64 Resp 20 18 B/P (MAP) 107/57 (74) 103/56 (72) Pulse Ox 92 95 91 94 O2 Delivery Vapotherm Vapotherm Vapotherm Vapotherm O2 Flow Rate 20.00 20.00 20.00 20.00 60.00 60.00 FiO2 60 60 09/20/20 00:00 Intake Total 1260 ml Output Total 1150 ml Balance 110 ml Blood Pressure Mean: 72 Diagnostic Imaging Diagonstic Imaging: Xray Plain Films/CT/US/NM/MRI: chest Time of Consult: 21:10 PATRICK RAZO Sep 20, 2020 06:28
[2020-09-20] MEDS ORDERED: CATHETER FLUSH 10 ML SYR IV ONE (09:08)
[2020-09-20] MEDS ORDERED: EPINEPHrine 0.1 MG/ML 10 ML (HOSPIRA) SYR IJ ONE (09:08)
[2020-09-20] MEDS ORDERED: SODIUM BICARB 8.4% 50 MEQ/50 ML (ABBOTT) SYR INJ ONE (09:08)
[2020-09-20] MEDS ORDERED: NS 1000 ML IV BAG IV ONE (09:08)
== END 2020-09-20 20:15 | disposition expired | DRG 193 ==
LOC: EDUNIT# 19:48 → ER FS 19:50 → 4TH 21:15 → ER FS 22:42 → 4TH 09-19 08:37
PROVIDERS: ADMIT Family Medicine; ATTEND Family Medicine
PROC: 5A12012 Performance of Cardiac Output, Single, Manual (ICD-10-PCS; principal; 2020-09-20)
PROC: 0BH17EZ Insertion of Endotracheal Airway into Trachea, Via Natural or Artificial Opening (ICD-10-PCS; 2020-09-20)
DX: J18.9 Pneumonia, unspecified organism (principal); J96.21 Acute and chronic respiratory failure with hypoxia; I21.4 Non-ST elevation (NSTEMI) myocardial infarction; J44.1 Chronic obstructive pulmonary disease with (acute) exacerbation; J44.0 Chronic obstructive pulmonary disease with (acute) lower respiratory infection; I46.9 Cardiac arrest, cause unspecified; Z20.822 Contact with and (suspected) exposure to COVID-19; I25.10 Atherosclerotic heart disease of native coronary artery without angina pectoris; F17.210 Nicotine dependence, cigarettes, uncomplicated; Z95.1 Presence of aortocoronary bypass graft; Z95.5 Presence of coronary angioplasty implant and graft; Z79.01 Long term (current) use of anticoagulants; Z79.82 Long term (current) use of aspirin
CPT/HCPCS: 36415; 71045; 76705; 80053; 80074; 83605; 83880; 84145; 84484; 85007; 85025; 85027; 86141; 87040; 87635; 93005; 94640; 94664; 94760; 96365; 96375